=== PATIENT | female | born 1955 | race Caucasian/White ===

== ENCOUNTER 2016-07-09 20:15 | Emergency (ER) | payer MEDICARE, OTHER ==
[~2016-07-09] VITALS: Ht 162.6 cm; Wt 100.0 kg
[~2016-07-09 20:15] MED LIST: ACET-915; ACYC1000; ASPI325T4; CARI350T; CARI350T29 PO; DICL75; DOCU-144; DULO60CA6; ENOX40DI14; FOLI-49; FURO40TA4; HYDR-3612; HYDR200T5; HYDR2SYR; LORA2VIA; MENT71OI; MUPI1OIN5; PANT40TA3; QUET50TA16; RES15 PO; RIFA300C; SERT100T; TEMA30CA6; [UNRECOGNIZED DRUG - CODE]; [UNRECOGNIZED DRUG - CODE] PO; [UNRECOGNIZED DRUG - OTHER]
[2016-07-09 20:20] VITALS: Ht 162.6 cm; Wt 100.0 kg
--- NOTE | 2016-07-09 20:24 | ERA ---
ER Documentation Chief Complaint Date/Time DATE: 07/09/16 TIME: 20:24 Chief Complaint Chronic left leg wound HPI The patient is a 61-year-old female, presenting to the ER because of chronic left leg wound with wound VAC. She saw differences in the color after discharge from the wound VAC, therefore she came to the ER. She denies fever, chills, neck pain, chest pain, dyspnea, abdominal pain, dysuria, diarrhea. He does not smoke or drink. She is following up with her doctor at [facility] for chronic left leg wound ROS All systems reviewed and are negative except as per history of present illness. Medications Home Meds Reported Medications Temazepam* (Temazepam*) 30 Mg Capsule, 30 MG PO HS Y for INSOMNIA, CAP 07/09/16 Pregabalin* (Lyrica*) 75 Mg Capsule, 75 MG PO TID, CAP 07/09/16 Omeprazole* (Omeprazole*) 40 Mg Capsule.dr, 40 MG PO DAILY, #30 CAP 07/09/16 Sertraline Hcl* (Zoloft*) 100 Mg Tablet, 150 MG PO DAILY, #30 TAB 07/09/16 Carisoprodol* (Soma*) 350 Mg Tablet, 350 MG PO TID Y for MUSCLE SPASMS, TAB 07/09/16 Hydroxychloroquine Sulfate* (Plaquenil*) 200 Mg Tab, 200 MG PO BID, TAB 07/09/16 Levothyroxine Sodium* (Synthroid*) 112 Mcg Tablet, 112 MCG PO BEFORE BREAKFAST, #30 TAB 07/09/16 Discontinued Reported Medications Temazepam (Restoril) 15 Mg Cap, PO, CAP 07/29/13 Gabapentin Enacarbil (HORIZANT) 600 Mg Tab.er.24h, PO 07/29/13 Carisoprodol* (Carisoprodol*) 350 Mg Tablet, PO Q8 Y for MUSCLE SPASMS, TAB 07/29/13 [subatax] No Conflict Check 05/23/12 Furosemide* (Furosemide*) 40 Mg Tablet, prn 05/23/12 Temazepam* (Restoril*) 30 Mg Capsule, prn 05/23/12 Menthol/Lanolin/Calamine/Znox (Calmoseptine Ointment) 71 Gm Oint..gm. 10/28/09 Lorazepam (Ativan) 2 Mg/Ml Vial 10/28/09 Hydromorphone Hcl* (Dilaudid* Inj) 2 Mg/Ml Soln 10/28/09 Hydrocodone Bit-Acetaminophen* (Corona*) 1 Tab Tab 10/28/09 Acetaminophen* (Tylenol*) 325 Mg Tab 10/28/09 Vancomycin Hcl (Vancocin 1GM/D5w) 1 Gm/250 Ml Iv.soln. 10/28/09 Sertraline Hcl* (Zoloft*) 100 Mg Tablet 10/28/09 Rifampin* (Rifadin*) 300 Mg Capsule 10/28/09 Quetiapine Fumarate* (Seroquel*) 50 Mg Tablet 10/28/09 Pantoprazole* (Protonix*) 40 Mg Tablet. 10/28/09 Mupirocin Calcium* (Bactroban* Nasal) 1 Gm Oint..gm. 10/28/09 Hydroxychloroquine Sulfate* (Plaquenil*) 200 Mg Tab 10/28/09 Folic Acid* (Folic Acid*) 1 Mg Tablet 10/28/09 Enoxaparin Sodium* (Lovenox*) 40 Mg/0.4 Ml Disp.syrin 10/28/09 Duloxetine Hcl* (Cymbalta*) 60 Mg Capsule. 10/28/09 Docusate Sodium* (Colace*) 100 Mg Capsule 10/28/09 Diclofenac Sodium* (Voltaren*) 75 Mg Tablet. 10/28/09 Carisoprodol* (Soma*) 350 Mg Tablet 10/28/09 Aspirin* (Danyell Aspirin*) 325 Mg Tablet 10/28/09 Acyclovir Sodium (Acyclovir Sodium) 1,000 Mg/Vial Vial 10/28/09 Allergies Allergies: Coded Allergies: Penicillins (Verified Allergy, Severe, 07/09/16) ampicillin (Verified Allergy, Intermediate, 07/09/16) cephalexin (Verified Allergy, Intermediate, 07/09/16) zolpidem (Verified Allergy, Intermediate, 07/09/16) iron (Verified Allergy, Mild, 07/09/16) PMhx/Soc History of Surgery: Yes (Knee Joint Replacement;Bariatric) Anesthesia Reaction: No Hx Neurological Disorder: Yes (Neuropathy) Hx Respiratory Disorders: No Hx Cardiac Disorders: Yes (HTN) Hx Psychiatric Problems: Yes (Anxiety;Depression;Insomnia) Hx Miscellaneous Medical Probl: Yes (RA;Opioid Dependence;Wound MRSA;GERD;Fall; Anemia;Chronic Pain;Muscle Spasms) Hx Alcohol Use: No Hx Substance Use: Yes Hx Tobacco Use: No Physical Exam Vitals Vital Signs Date Time Temp Pulse Resp B/P Pulse Ox O2 Delivery O2 Flow Rate FiO2 07/09/16 22:20 98.2 87 20 132/72 100 Room Air 07/09/16 20:20 97.7 82 20 108/78 100 Physical Exam Const: No acute distress. Head: Atraumatic. Eyes: Normal Conjunctiva. ENT: Normal External Ears, Nose and Mouth. Neck: Full range of motion. No meningismus. Resp: Clear to auscultation bilaterally. Cardio: Regular rate and rhythm, no murmurs. Abd: Soft, non distended, normal bowel sounds, non tender. Skin: No petechiae or rashes. Back: No midline or flank tenderness. Ext: No cyanosis, or edema. Left lower extremity with chronic wound with wound VAC, no erythema, no discharge, no calf tenderness Neur: Awake and alert. No focal deficit Psych: Normal Mood and Affect. Result Diagram: 07/09/16204407/09/162044 Results 24 hrs Laboratory Tests Test 07/09/16 20:45 White Blood Count 11.810^3/ul Red Blood Count 4.3510^6/ul Hemoglobin 10.3g/dl Hematocrit 34.2% Mean Corpuscular Volume 78.6fl Mean Corpuscular Hemoglobin 23.7pg Mean Corpuscular Hemoglobin Concent 30.1g/dl Red Cell Distribution Width 16.2% Platelet Count 30687^3/UL Mean Platelet Volume 9.3fl Neutrophils % 79.4% Lymphocytes % 10.2% Monocytes % 7.8% Eosinophils % 2.0% Basophils % 0.3% Nucleated Red Blood Cells % 0.0/100WBC Neutrophils # 9.310^3/ul Lymphocytes # 1.210^3/ul Monocytes # 0.910^3/ul Eosinophils # 0.210^3/ul Basophils # 0.010^3/ul Nucleated Red Blood Cells # 0.010^3/ul Prothrombin Time 15.5Sec Prothrombin Time Ratio 1.2 INR International Normalized Ratio 1.22 Activated Partial Thromboplast Time 35.3Sec Sodium Level 139mmol/L Potassium Level 4.3mmol/L Chloride Level 100mmol/L Carbon Dioxide Level 28mmol/L Anion Gap 15 Blood Urea Nitrogen 20mg/dl Creatinine 0.90mg/dl Glucose Level 74mg/dl Lactic Acid Level 1.2mmol/L Calcium Level 8.7mg/dl Total Bilirubin 0.1mg/dl Direct Bilirubin 0.00mg/dl Indirect Bilirubin 0.1mg/dl Aspartate Amino Transf (AST/SGOT) 28IU/L Alanine Aminotransferase (ALT/SGPT) 29IU/L Alkaline Phosphatase 88IU/L Troponin I < 0.012ng/ml Total Protein 6.9g/dl Albumin 3.2g/dl Globulin 3.70g/dl Albumin/Globulin Ratio 0.86 Procedures/MDM [place] [id number] Radiology Main Line: [phone] DIAGNOSTIC IMAGING REPORT Patient: ERICA ZAVALA : 1955 Age: 61 Sex: F MR #: [id number] DOS: 07/09/162032 Ordering MD: JULI JOHNSTON MD Location: E/R Room/Bed: PROCEDURE: XR Chest. CLINICAL INDICATION: Possible sepsis. TECHNIQUE: Single AP portable chest COMPARISON: 07/29/2013 Chest x-ray FINDINGS: Cardiomegaly stable compared to prior examination. Mild vascular congestion. The patient is rotated to the left. No pleural effusion or focal consolidation. Atherosclerotic calcification of the aorta. No pneumothorax. The osseous structures and soft tissues are unremarkable. IMPRESSION: 1. No evidence for active cardiopulmonary disease. Mild prominence of the pulmonary vascularity. RPTAT:AAJJ Physician Gabrielle Date Time Electronically viewed and signed by Physician Gabrielle on 07/09/2016 21:05 JESSICA/ CC: JULI JOHNSTON MD EKG: Read by emergency physician Rate/Rhythm: Normal Sinus Rhythm 90 beats/min QRS, ST, T-waves: No ST elevation, no T inversion, low voltage QRS, septal Q waves Impression: Abnormal EKG MEDICAL MAKING DECISION: The patient is a 61-year-old female, presenting with chronic left leg wound. She is stable for outpatient follow-up The differential diagnoses considered include but are not limited to cellulitis , abscess, DVT, osteomyelitis Departure Diagnosis: Primary Impression: Chronic wound of extremity Additional Impression: Anemia Condition: Good Comments I discussed the findings with the patient. I advised the patient to follow-up with the primary physician in about 1-2 days, sooner if needed and return if any concern. JULI JOHNSTON MD July 09, 2016 20:24
--- NOTE | 2016-07-09 21:05 | RADRPT ---
PROCEDURE: XR Chest. CLINICAL INDICATION: Possible sepsis. TECHNIQUE: Single AP portable chest COMPARISON: 07/29/2013 Chest x-ray FINDINGS: Cardiomegaly stable compared to prior examination. Mild vascular congestion. The patient is rotate d to the left. No pleural effusion or focal consolidation. Atherosclerotic calcification of the ao rta. No pneumothorax. The osseous structures and soft tissues are unremarkable. IMPRESSION: 1. No evidence for active cardiopulmonary disease. Mild prominence of the pulmonary vascularity. RPTAT:AAJJ Jono Jones Physician Date Time Electronically viewed and signed by Physician Gabrielle on 07/09/2016 21:05 JESSICA/
[2016-07-09] MEDS ORDERED: LEVO112T2 PO (21:10)
[2016-07-09 21:11] LABS: ADD SCAN DIFF NO
[2016-07-09] MEDS ORDERED: HYDR200T5 PO (21:11)
[2016-07-09] MEDS ORDERED: CARI350T PO (21:11)
[2016-07-09] MEDS ORDERED: SERT100T PO (21:12)
[2016-07-09 21:13] LABS: BASOPHILS % 0.3 % (0.0-2.0); EOSINOPHILS # 0.2 10^3/ul (0.0-0.5); HEMATOCRIT 34.2 % (37.0-47.0); HEMOGLOBIN 10.3 g/dl (12.0-16.0); LYMPHOCYTES # 1.2 10^3/ul (0.8-2.9); LYMPHOCYTES % 10.2 % (15.0-51.0); MEAN CORPUSCULAR HEMOGLOBIN 23.7 pg (29.0-33.0); MEAN CORPUSCULAR HGB CONC 30.1 g/dl (32.0-37.0); MEAN CORPUSCULAR VOLUME 78.6 fl (82.0-101.0); MEAN PLATELET VOLUME 9.3 fl (7.4-10.4); MONOCYTE # 0.9 10^3/ul (0.3-0.9); MONOCYTES % 7.8 % (0.0-11.0); NEUTROPHIL # 9.3 10^3/ul (1.6-7.5); NEUTROPHILS % 79.4 % (39.0-77.0); PLATELET COUNT 344 10^3/UL (140-415); RED BLOOD COUNT 4.35 10^6/ul (4.20-5.40); RED CELL DISTRIBUTION WIDTH 16.2 % (11.5-14.5); WHITE BLOOD COUNT 11.8 10^3/ul (4.8-10.8)
[2016-07-09] MEDS ORDERED: OMEP40CA6 PO (21:13)
[2016-07-09] MEDS ORDERED: LYR75 PO (21:13)
[2016-07-09] MEDS ORDERED: TEMA30CA PO (21:15)
[2016-07-09 21:31] LABS: ALBUMIN 3.2 g/dl (3.3-4.9); CHLORIDE 100 mmol/L (97-110); POTASSIUM 4.3 mmol/L (3.5-5.1); SODIUM 139 mmol/L (135-144)
[2016-07-09 21:32] LABS: INR 1.22; PROTIME 15.5 Sec (12.2-14.2); PT RATIO 1.2
[2016-07-09 21:33] LABS: PARTIAL THROMBOPLASTIN TIME 35.3 Sec (25.0-35.0)
[2016-07-09 21:34] LABS: ALANINE AMINOTRANSFERASE 29 IU/L (13-69); ALBUMIN/GLOBULIN RATIO 0.86; ALKALINE PHOSPHATASE 88 IU/L (42-121); ANION GAP 15 (8-16); ASPARTATE AMINO TRANSFERASE 28 IU/L (15-46); BILIRUBIN,INDIRECT 0.1 mg/dl (0-1.1); BILIRUBIN,TOTAL 0.1 mg/dl (0.2-1.3); BLOOD UREA NITROGEN 20 mg/dl (7-20); CALCIUM 8.7 mg/dl (8.4-10.2); CARBON DIOXIDE 28 mmol/L (21-31); GLUCOSE 74 mg/dl (70-220); TOTAL PROTEIN 6.9 g/dl (6.1-8.1)
[2016-07-09 21:51] LABS: TROPONIN-I < 0.012 ng/ml (0.00-0.12)
[2016-07-09 23:00] VITALS: BP 133/85; PULSE 88; RESP 20; TEMP 97.8
== END 2016-07-09 23:00 | disposition home or self-care (01) ==
LOC: E/R 20:15
DX: S81.802A Unspecified open wound, left lower leg, initial encounter (principal); I10 Essential (primary) hypertension; D64.9 Anemia, unspecified; R07.9 Chest pain, unspecified; X58.XXXA Exposure to other specified factors, initial encounter; Y92.9 Unspecified place or not applicable; Z96.651 Presence of right artificial knee joint; Z79.82 Long term (current) use of aspirin
CPT/HCPCS: 36415; 71010; 80053; 83605; 84484; 85025; 85610; 85730; 87040

== ENCOUNTER 2016-09-15 09:52 | Inpatient (IN) | payer MEDICARE, OTHER ==
[~2016-09-15] VITALS: Ht 170.2 cm; Wt 81.8 kg
[2016-09-15] VITALS (7 sets, daily range): BP systolic 150–172; BP diastolic 63–82; PULSE 75–86; RESP 18–20; Ht 170.2 cm; Wt 81.8 kg
[~2016-09-15 09:52] MED LIST changes: -ACET-915; -ACYC1000; -ASPI325T4; -CARI350T; +CARI350T PO; -CARI350T29 PO; -DICL75; -DOCU-144; -DULO60CA6; -ENOX40DI14; -FOLI-49; -FURO40TA4; -HYDR-3612; -HYDR200T5; +HYDR200T5 PO; -HYDR2SYR; +LEVO112T2 PO; -LORA2VIA; +LYR75 PO; -MENT71OI; -MUPI1OIN5; +OMEP40CA6 PO; -PANT40TA3; -QUET50TA16; -RES15 PO; -RIFA300C; -SERT100T; +SERT100T PO; +TEMA30CA PO; -TEMA30CA6; -[UNRECOGNIZED DRUG - CODE]; -[UNRECOGNIZED DRUG - CODE] PO; -[UNRECOGNIZED DRUG - OTHER]
--- NOTE | 2016-09-15 10:06 | ERA ---
ER Documentation Chief Complaint Date/Time DATE: 09/15/16 TIME: 10:06 Chief Complaint HPI 61y/o female, h/o rheumatoid arthritis 2 weeks s/p left AKA presents to the ED via rescue ambulance for evaluation of loss of consciousness and ALOC. Caregiver reports the patient was unresponsive for 30 minutes. Paramedics found the patient awake but lethargic and confused. No reported seizure activity. Mild headache but no visual changes, focal weakness or numbness. Patient denies chest pain, palpitations or shortness of breath. No abdominal pain, N/V/D/C. No fevers or chills. ROS All systems reviewed and are negative except as per history of present illness. Medications Home Meds Reported Medications Temazepam* (Temazepam*) 30 Mg Capsule, 30 MG PO HS Y for INSOMNIA, CAP 07/09/16 Pregabalin* (Lyrica*) 75 Mg Capsule, 75 MG PO TID, CAP 07/09/16 Omeprazole* (Omeprazole*) 40 Mg Capsule.dr, 40 MG PO DAILY, #30 CAP 07/09/16 Sertraline Hcl* (Zoloft*) 100 Mg Tablet, 150 MG PO DAILY, #30 TAB 07/09/16 Carisoprodol* (Soma*) 350 Mg Tablet, 350 MG PO TID Y for MUSCLE SPASMS, TAB 07/09/16 Hydroxychloroquine Sulfate* (Plaquenil*) 200 Mg Tab, 200 MG PO BID, TAB 07/09/16 Levothyroxine Sodium* (Synthroid*) 112 Mcg Tablet, 112 MCG PO BEFORE BREAKFAST, #30 TAB 07/09/16 Allergies Allergies: Coded Allergies: Penicillins (Verified Allergy, Severe, 07/09/16) ampicillin (Verified Allergy, Intermediate, 07/09/16) cephalexin (Verified Allergy, Intermediate, 07/09/16) zolpidem (Verified Allergy, Intermediate, 07/09/16) iron (Verified Allergy, Mild, 07/09/16) PMhx/Soc Reviewed in chart. As per HPI. History of Surgery: Yes (Knee Joint Replacement;Bariatric) Anesthesia Reaction: No Hx Neurological Disorder: Yes (Neuropathy) Hx Respiratory Disorders: No Hx Cardiac Disorders: Yes (HTN) Hx Psychiatric Problems: Yes (Anxiety;Depression;Insomnia) Hx Miscellaneous Medical Probl: Yes (RA;Opioid Dependence;Wound MRSA;GERD;Fall; Anemia;Chronic Pain;Muscle Spasms) Hx Alcohol Use: No Hx Substance Use: Yes Hx Tobacco Use: No FmHx No stroke or cancer Physical Exam Vitals Vital Signs Date Time Temp Pulse Resp B/P Pulse Ox O2 Delivery O2 Flow Rate FiO2 09/15/16 11:10 80 15 173/91 98 Room Air 09/15/16 10:29 99.0 90 14 196/87 95 Physical Exam Const: Lethargic. Responsive. Head: Atraumatic Eyes: JERALD, EOMI. Normal Conjunctiva ENT: Normal External Ears, Nose and Mouth. No intraoral injury. Neck: Full range of motion. Carotids 2+ without bruits. No JVD. No meningismus. Resp: BS equal and clear to auscultation bilaterally Cardio: Regular rate and rhythm, no murmurs Abd: Soft, obese, non tender, non distended. Normal bowel sounds. No masses. Skin: No petechiae or rashes Back: No midline or flank tenderness Ext: No cyanosis, or edema. s/p left AKA. Wound healing well. No erythema induration or drainage Neur: Awake and responsive. CN's II - XII grossly intact. No pronator drift. Motor and sensory equal bilaterally. No focal deficit observed. Psych: Normal Mood and Affect Result Diagram: 09/15/16 1020 09/15/16 1020 Results 24 hrs Laboratory Tests Test 09/15/16 10:20 09/15/16 11:05 White Blood Count 8.510^3/ul Red Blood Count 5.1710^6/ul Hemoglobin 12.3g/dl Hematocrit 41.1% Mean Corpuscular Volume 79.5fl Mean Corpuscular Hemoglobin 23.8pg Mean Corpuscular Hemoglobin Concent 29.9g/dl Red Cell Distribution Width 18.9% Platelet Count 18262^3/UL Mean Platelet Volume 10.0fl Neutrophils % 77.9% Lymphocytes % 13.7% Monocytes % 6.5% Eosinophils % 0.7% Basophils % 0.4% Nucleated Red Blood Cells % 0.0/100WBC Neutrophils # 6.610^3/ul Lymphocytes # 1.210^3/ul Monocytes # 0.610^3/ul Eosinophils # 0.110^3/ul Basophils # 0.010^3/ul Nucleated Red Blood Cells # 0.010^3/ul Sodium Level 144mmol/L Potassium Level 4.6mmol/L Chloride Level 103mmol/L Carbon Dioxide Level 21mmol/L Anion Gap 25 Blood Urea Nitrogen 19mg/dl Creatinine 0.67mg/dl Glucose Level 161mg/dl Calcium Level 9.7mg/dl Total Bilirubin 0.3mg/dl Direct Bilirubin 0.00mg/dl Indirect Bilirubin 0.3mg/dl Aspartate Amino Transf (AST/SGOT) 57IU/L Alanine Aminotransferase (ALT/SGPT) 47IU/L Alkaline Phosphatase 121IU/L Total Protein 8.4g/dl Albumin 4.5g/dl Globulin 3.90g/dl Albumin/Globulin Ratio 1.15 Free Thyroxine 1.33ng/dl Ethyl Alcohol Level < 10.0mg/dl Urine Color YELLOW Urine Clarity SLIGHTLY CLOUDY Urine pH 6.0 Urine Specific [place] 1.020 Urine Ketones NEGATIVEmg/dL Urine Nitrite POSITIVEmg/dL Urine Bilirubin NEGATIVEmg/dL Urine Urobilinogen 2+mg/dL Urine Leukocyte Esterase 2+Compa/ul Urine Microscopic RBC 3/HPF Urine Microscopic WBC 19/HPF Urine Bacteria MANY/HPF Urine Hemoglobin NEGATIVEmg/dL Urine Glucose NEGATIVEmg/dL Urine Total Protein 2+mg/dl Urine Opiates Screen Negative Urine Barbiturates Negative Urine Amphetamines Screen Negative Urine Benzodiazepines Screen Negative Urine Cocaine Screen Negative Urine Cannabinoids Negative Current Medications Medications (Trade) Dose Ordered Sig/Vincent Route PRN Reason Start Time Stop Time Status Last Admin Dose Admin Sodium Chloride 500 ml @ 500 mls/hr Q1H STAT IV 09/15/16 11:01 09/15/16 12:00 DC 09/15/16 11:57 Levofloxacin/ Dextrose (Levaquin 500mg/ D5W 100 ml (Pmx)) 100 ml @ 100 mls/hr ONCE STAT IVPB 09/15/16 12:08 09/15/16 13:07 DC 09/15/16 12:34 EKG: TIME: 10:19. Sinus rhythm. Ventricular rate 93. Septal Q waves in leads V1 and V2. T-wave inversions in leads II, III, aVF, V3 through V6. No acute ST elevation. No ectopy. EP Interpretation: Abnormal EKG. IMAGING: Chest Radiograph. CLINICAL INDICATION: Altered mental status TECHNIQUE: Single frontal chest radiograph. COMPARISON: Chest radiograph 07/29/2013 FINDINGS: Heart size is within normal limits. Atherosclerotic calcifications are present. No infiltrate or effusion is seen. The bones are intact. IMPRESSION: 1. No evidence of acute cardiopulmonary disease. 2. Atherosclerotic vascular disease. RPTAT: KK .Hemant Tirado MD, MD Date Time Electronically viewed and signed by .Hemant Tirado MD, MD on 2016 10:41 .B/ CT brain without contrast CLINICAL INDICATION: Altered level of consciousness TECHNIQUE: CT of the brain without contrast performed on a multidetector CT scanner, with multiplanar reformats. One or more of the following dose reduction techniques were used: Automated exposure control, adjustment in mA and / or kV according to patient size, use of iterative reconstructive technique. CTDIvol = 41 mGy; DLP = 720 mGy-cm. COMPARISON: 07/29/2013 FINDINGS: No acute intracranial hemorrhage is identified. No extra-axial fluid collection is seen. There is no mass effect. No midline shift is identified. The ventricles and sulci are mildly enlarged compatible with volume loss. There are minimal areas of hypodensity in the periventricular - deep white matter which are nonspecific but suggestive of chronic small vessel ischemic changes. Clemente-white differentiation is preserved. Partly empty sella noted. Atherosclerotic calcifications of the intracranial internal carotid arteries are noted. Calvarium and skull base are intact. Mastoid air cells and imaged paranasal sinuses grossly clear. IMPRESSION: 1. No evidence of acute intracranial pathology. 2. Mild volume loss, with minimal chronic small vessel ischemic changes. RPTAT: VV .Romel Yen MD, Date Time Electronically viewed and signed by .Romel Yen MD, MD on 09/15/2016 11:26 .O/ Procedures/MDM DOCUMENTS REVIEWED: ED nurse, prior records MEDICAL DECISION MAKINy/o female, h/o rheumatoid arthritis 2 weeks s/p left AKA presents to the ED via rescue ambulance for evaluation of loss of consciousness and ALOC. No focal neurologic deficit or signs of CVA/TIA. No evidence of seizure. No CT evidence of acute ischemia, mass, hemorrhage or hydrocephalus. No cardiac dysrhythmia. Doubt pulmonary embolism. UTI but no SIRS or sepsis. Admit to telemetry for further evaluation and management. Counseled patient regarding diagnosis, diagnostic results and plan for admission. CALLS/CONSULTS: Time 12:00, Dr. Goetz, Recommends telemetry admission. PATIENT CARE TRANSITIONED: Time: 12:05, Dr. Goetz. Departure Diagnosis: Primary Impression: Syncope Qualified Code: R55 - Syncope, unspecified syncope type Additional Impressions: Altered level of consciousness Rheumatoid arthritis Qualified Code: M06.9 - Rheumatoid arthritis, involving unspecified site, unspecified rheumatoid factor presence S/P AKA (above knee amputation) Qualified Code: Z89.612 - Status post above knee amputation of left lower extremity Condition: Serious STEVEN MENDOZA MD Sep 15, 2016 10:06
[2016-09-15 10:29] LABS: BASOPHILS % 0.4 % (0.0-2.0); EOSINOPHILS # 0.1 10^3/ul (0.0-0.5); EOSINOPHILS % 0.7 % (0.0-7.0); HEMATOCRIT 41.1 % (37.0-47.0); HEMOGLOBIN 12.3 g/dl (12.0-16.0); LYMPHOCYTES # 1.2 10^3/ul (0.8-2.9); LYMPHOCYTES % 13.7 % (15.0-51.0); MEAN CORPUSCULAR HEMOGLOBIN 23.8 pg (29.0-33.0); MEAN CORPUSCULAR HGB CONC 29.9 g/dl (32.0-37.0); MEAN CORPUSCULAR VOLUME 79.5 fl (82.0-101.0); MONOCYTE # 0.6 10^3/ul (0.3-0.9); MONOCYTES % 6.5 % (0.0-11.0); NEUTROPHIL # 6.6 10^3/ul (1.6-7.5); NEUTROPHILS % 77.9 % (39.0-77.0); PLATELET COUNT 426 10^3/UL (140-415); RED BLOOD COUNT 5.17 10^6/ul (4.20-5.40); RED CELL DISTRIBUTION WIDTH 18.9 % (11.5-14.5); WHITE BLOOD COUNT 8.5 10^3/ul (4.8-10.8)
--- NOTE | 2016-09-15 10:41 | RADRPT ---
PROCEDURE: Chest Radiograph. CLINICAL INDICATION: Altered mental status TECHNIQUE: Single frontal chest radiograph. COMPARISON: Chest radiograph 07/29/2013 FINDINGS: Heart size is within normal limits. Atherosclerotic calcifications are present. No infiltrate or effusion is seen. The bones are intact. IMPRESSION: 1. No evidence of acute cardiopulmonary disease. 2. Atherosclerotic vascular disease. RPTAT: KK .Hemant Tirado MD, MD Date Time Electronically viewed and signed by .Hemant Tirado MD, on 09/15/2016 10:41 .B/
[2016-09-15 10:59] LABS: ALANINE AMINOTRANSFERASE 47 IU/L (13-69); ALBUMIN 4.5 g/dl (3.3-4.9); ALBUMIN/GLOBULIN RATIO 1.15; ALKALINE PHOSPHATASE 121 IU/L (42-121); ANION GAP 25 (8-16); ASPARTATE AMINO TRANSFERASE 57 IU/L (15-46); BILIRUBIN,INDIRECT 0.3 mg/dl (0-1.1); BILIRUBIN,TOTAL 0.3 mg/dl (0.2-1.3); BLOOD UREA NITROGEN 19 mg/dl (7-20); CALCIUM 9.7 mg/dl (8.4-10.2); CARBON DIOXIDE 21 mmol/L (21-31); CHLORIDE 103 mmol/L (97-110); CREATININE 0.67 mg/dl (0.44-1.00); GLUCOSE 161 mg/dl (70-220); POTASSIUM 4.6 mmol/L (3.5-5.1); SODIUM 144 mmol/L (135-144); TOTAL PROTEIN 8.4 g/dl (6.1-8.1)
[2016-09-15] MEDS ORDERED: SOD CHLORIDE 0.9% 500 ML IV STA (11:01)
[2016-09-15 11:03] LABS: ETHANOL < 10.0 mg/dl
--- NOTE | 2016-09-15 11:26 | RADRPT ---
PROCEDURE: CT brain without contrast CLINICAL INDICATION: Altered level of consciousness TECHNIQUE: CT of the brain without contrast performed on a multidetector CT scanner, with multiplan ar reformats. One or more of the following dose reduction techniques were used: Automated exposure control, adjustment in mA and / or kV according to patient size, use of iterative reconstructive vidal hnique. CTDIvol = 41 mGy; DLP = 720 mGy-cm. COMPARISON: 07/29/2013 FINDINGS: No acute intracranial hemorrhage is identified. No extra-axial fluid collection is seen. There is no mass effect. No midline shift is identified. The ventricles and sulci are mildly enlarged compatible with volume loss. There are minimal areas of hypodensity in the periventricular - deep white matter which are nonspeci fic but suggestive of chronic small vessel ischemic changes. Clemente-white differentiation is preserve d. Partly empty sella noted. Atherosclerotic calcifications of the intracranial internal carotid arteries are noted. Calvarium and skull base are intact. Mastoid air cells and imaged paranasal sinuses grossly clear. IMPRESSION: 1. No evidence of acute intracranial pathology. 2. Mild volume loss, with minimal chronic small vessel ischemic changes. RPTAT: VV .Romel Yen MD, Date Time Electronically viewed and signed by .Romel Yen MD, on 09/15/2016 11:26 .O/
[2016-09-15 11:39] LABS: ADD UMIC YES; UR ASCORBIC ACID NEGATIVE (NEGATIVE); UR BACTERIA MANY /HPF (NONE SEEN); UR BILIRUBIN (Dip) NEGATIVE (NEGATIVE); UR BLOOD (Dip) NEGATIVE (NEGATIVE); UR CLARITY SLIGHTLY CLOUDY (CLEAR); UR COLOR YELLOW (YELLOW); UR GLUCOSE (Dip) NEGATIVE (NEGATIVE); UR KETONES (Dip) NEGATIVE (NEGATIVE); UR LEUKOCYTE ESTERASE (Dip) 2+ Leu/ul (NEGATIVE); UR NITRITE (Dip) POSITIVE (NEGATIVE); UR RBC 3 /HPF (0-5); UR TOTAL PROTEIN (Dip) 2+ mg/dl (NEGATIVE); UR UROBILINOGEN (Dip) 2+ mg/dL (NEGATIVE)
[2016-09-15 11:56] LABS: BENZODIAZEPINES Negative (NEGATIVE)
[2016-09-15 12:00] LABS: BARBITURATES Negative (NEGATIVE); CANNABINOIDS Negative (NEGATIVE); COCAINE Negative (NEGATIVE); OPIATES Negative (NEGATIVE)
[2016-09-15] MEDS ORDERED: LEVOFLOXACIN 500MG/D5W (PMX) 100 ML IVPB STA (12:08)
[2016-09-15] MEDS ORDERED: ACETAMINOPHEN 325 MG TAB PO PRN (12:30)
[2016-09-15] MEDS ORDERED: ONDANSETRON 4 MG INJ IV PRN ×2 (12:30→13:00)
[2016-09-15] MEDS ORDERED: NA PHOSPHATE/BIPHOS 133 ML ENEMA PR PRN (13:00)
[2016-09-15] MEDS ORDERED: DOCUSATE SODIUM 100 MG CAP PO PRN (13:00)
[2016-09-15] MEDS ORDERED: ALBUTEROL/IPRATROPIUM (NEB) 3 ML AMP HHN PRN (13:00)
[2016-09-15] MEDS ORDERED: NITROGLYCERIN (SL) 0.4 MG TAB SL PRN (13:00)
[2016-09-15] MEDS ORDERED: morphine 4 MG/ML VIAL IV PRN (13:00)
[2016-09-15] MEDS ORDERED: NACL 0.9% 3 ML SYG IV SCH (13:00)
[2016-09-15] MEDS ORDERED: MAGNESIUM HYDROXIDE 30ML CUP PO PRN (13:00)
[2016-09-15] MEDS ORDERED: hydrALAzine 20 MG INJ IV PRN (13:00)
[2016-09-15] MEDS ORDERED: HYDROCODONE/APAP (5/325) TAB PO PRN (13:00)
[2016-09-15] MEDS: SOD CHLORIDE 0.9% 1,000 ML IV SCH ×2 (15:39→22:55)
[2016-09-15] MEDS: AZTREONAM 1 GM/NS (PMX) 50 ML IVPB SCH ×2 (15:47→21:00)
--- NOTE | 2016-09-15 16:17 | HP ---
Date/Time of Note Date/Time of Note DATE: 09/15/16 TIME: 16:11 Assessment/Plan VTE Prophylaxis VTE Prophylaxis Intervention: SCD's Lines/Catheters IV Catheter Type (from Nrsg): Peripheral IV Assessment/Plan Chief Complaint/Hosp Course Assessment and plan: 61-year-old female found down at home, with recent left AKA , history of rheumatoid arthritis and lupus, and [place] abuse. Differential diagnosis includes polypharmacy, less likely would include stroke as head CT was negative. Less likely is also seizure, or [place]. 1. Syncope: Again head CT negative. -We will check carotid Dopplers, echocardiogram. Consider pain management consult given possibility of polypharmacy. - Obviously we are going to hold her home pain medicines for now -Consider low-dose methadone to start. 2. History of rheumatoid arthritis: Again pain management doctor be consult 3. Lupus: No present issues continue to monitor for now 4. Recent AKA: We will get PT consult, social work consult as well for possible placement 5. GI prophylaxis: PPI Problems: HPI/ROS Admit Date/Time Admit Date/Time Sep 15, 2016 at 12:29 ROS 61-year-old female past medical history of [place] abuse, recent AKA left, rheumatoid arthritis, MRSA infection in the knees and hip, lupus, who presents after being found down at home. Apparently the patient had left AKA performed at [facility] least 2 weeks ago. She was sent to [facility] afterwards. Before that she had been on epidural pump at the hospital, and then switched over to methadone. In any event she rehabbed and was in tears and was sent home about a week or so ago. She says 2 days ago she developed severe headache after talking to some neighbors who "caught her by surprise ". She did fine yesterday but today when her caregiver was trying to turn her patient developed some sudden left arm numbness and states she passed out. Before this happened she denied any palpitations, tongue biting, but did have positive dizziness. When she woke up which she thinks is minutes later EMS was started there. Denied any tongue biting, no leakage of any urine or stool. No prior history of any stroke or heart attack. When she came into the ER today head CT was performed which was negative for acute findings. PMH/Family/Social Past Surgical History Past Surgical Hx: other (L1-5 back surgery, femur fracture surgery, recent left AKA, tonsil surgery ) Family History Significant Family History: heart disease (Father), lung disease (Cancer, mother) Social History Alcohol Use: none Smoking Status: Never smoker Drug Use: other (Former [place] abuse) Exam/Review of Systems Vital Signs Vitals Vital Signs Date Time Temp Pulse Resp B/P Pulse Ox O2 Delivery O2 Flow Rate FiO2 09/15/16 16:07 85 09/15/16 13:37 17 153/84 100 Room Air 09/15/16 10:29 99.0 Exam Exam General: Lying in bed, slightly lethargic, loses train of thought occasionally, alert when reoriented HEENT: Pupils equal round reactive to light extraocular muscles are intact Neck: Supple Respiratory: Slightly distant breath sounds bilaterally, no wheezes Cardiovascular: S1-S2 heard, no rubs or gallops GI: Nontender, nondistended, soft, no rebound or guarding Muscular skeletal: Left AKA present. No lower extremity edema right lower extremity Neuro: No signs of any focal deficits Labs Result Diagram: 09/15/16 1020 09/15/16 1020 Medications Medications Current Medications Ondansetron HCl (Zofran Inj) 4 mg Q6H PRN IV NAUSEA AND/OR VOMITING; Start 09/15 at 13:00 Acetaminophen (Tylenol Tab) 650 mg Q6H PRN PO PAIN LEVEL 1-3 OR FEVER; Start at 13:00 Acetaminophen/ Hydrocodone Bitart ([place] (5/325)) 1 tab Q6H PRN PO MODERATE PAIN LEVEL 4-6; Start 09/15/16 at 13:00 Morphine Sulfate (morphine) 2 mg Q4H PRN IV SEVERE PAIN LEVEL 7-10; Start at 13:00 Docusate Sodium (Colace) 100 mg Q12H PRN PO CONSTIPATION; Start 09/15/16 at 13: 00 Magnesium Hydroxide (Milk Of Mag) 30 ml DAILY PRN PO CONSTIPATION; Start at 13:00 Sodium Biphosphate/ Sodium Phosphate (Fleet Enema) 133 ml DAILY PRN [place] CONSTIPATION; Start 09/15/16 at 13:00 Lorazepam 0.5 mg 0.5 mg Q6H PRN IV ANXIETY; Start 09/15/16 at 13:00 Sodium Chloride (NS) 1,000 ml @ 100 mls/hr Q10H IV Last administered on 15:39; Admin Dose 100 MLS/HR; Start 09/15/16 at 12:55 Hydralazine HCl (Apresoline) 10 mg Q6H PRN IV ELEVATED BLOOD PRESSURE; Start at 13:00 Nitroglycerin (Nitroglycerin (Sl Tab) 0.4 Mg) 1 tab Q5M PRN SL ANGINA; Start at 13:00 Hydroxychloroquine Sulfate (Plaquenil) 200 mg BID PO ; Start 09/15/16 at 21:00 Pantoprazole 40 mg 40 mg DAILY PO ; Start 09/16/16 at 09:00 Aztreonam (Azactam 1gm/NS (Pmx)) 50 ml @ 100 mls/hr Q12 IVPB Last administered on 09/15/16 15:47; Admin Dose 100 MLS/HR; Start 09/15/16 at 13:00 RAYA JOAQIUN Sep 15, 2016 16:17
[2016-09-15] MEDS ORDERED: PIPER-TAZO 3.375 GM IV (PMX) 100 ML IVPB SCH (18:00)
--- NOTE | 2016-09-15 18:03 | RADRPT ---
PROCEDURE: US carotid arteries. CLINICAL INDICATION: Dizziness. Syncope. TECHNIQUE: Multiple sonographic images of the carotid arteries and vertebral arteries were obtaine d utilizing olvera scale, duplex, and color-flow imaging. The images were reviewed on a PACS workstati on. COMPARISON: No prior studies are available for comparison. FINDINGS: Evaluation of the right carotid bifurcation region reveals mild atherosclerotic disease. Evaluation of the left carotid bifurcation region reveals mild atherosclerotic disease. There is antegrade flow within the vertebral arteries bilaterally. RIGHT CAROTID MEASUREMENTS: Common Carotid [id number] (cm/sec) Internal Carotid Artery 71 (cm/sec) External Carotid Artery 65 (cm/sec) Vertebral Artery 60 (cm/sec) Internal Carotid/Common Carotid0.8 LEFT CAROTID MEASUREMENTS: Common Carotid [id number] (cm/sec) Internal Carotid Artery 80 (cm/sec) External Carotid Artery 54 (cm/sec) Vertebral Artery 65 (cm/sec) Internal Carotid/Common Carotid1.3 Validated velocity measurements with angiographic measurements. Velocity criteria are extrapolated f rom diameter data as defined by the Society of Radiologists in Ultrasound Consensus Conference. Radi ology 2003; 229;340-346. This study does indirectly reference the measurement of the distal ICA shayy meter as the denominator for stenosis measurement. IMPRESSION: 1. Less than 50% stenosis bilaterally in the internal carotid arteries. 2. Normal antegrade flow in the vertebral arteries bilaterally. RPTAT: QQ SRU Consensus Conference Criteria for the Diagnosis of Carotid Artery Stenosis* Degree of Stenosis, % ICA PSV, cm/sec Plaque Estimate, % ICA/CCA PSV Ratio Normal <125 None <2.0 <50 <125 <50 <2.0 50 69 125-230 >50 2.0-4.0 >70 but less than near occlusion >230 >50 <4.0 Near occlusion High, low, or undetectable Visible Variable Total occlusion Undetectable Visible, no detectable lumen Not applicable *Cartoid artery stenosis: olvera-scale and Doppler US diagnosis. Society of Radiologists in Ultrasound Consensus Conference. Radiology 2003; 229: 340-346 .Luis Angel Elizalde MD, Date Time Electronically viewed and signed by .Luis Angel Elizalde MD, on 09/15/2016 18:02 .R/
[2016-09-15] MEDS: METHADONE 5 MG TAB PO SCH (20:53)
[2016-09-15] MEDS: HYDROXYCHLOROQUINE 200 MG TAB PO SCH (21:22)
[2016-09-16] VITALS (10 sets, daily range): BP systolic 124–135; BP diastolic 60–70; PULSE 59–70; RESP 18–20
[2016-09-16] MEDS: ACETAMINOPHEN 325 MG TAB PO PRN ×2 (01:03→11:58)
[2016-09-16] MEDS: LEVOTHYROXINE 112 MCG TAB PO SCH (06:23)
[2016-09-16] MEDS: HYDROXYCHLOROQUINE 200 MG TAB PO SCH ×2 (08:45→20:55)
[2016-09-16] MEDS: PANTOPRAZOLE (EC) 40 MG TAB PO SCH (08:45)
[2016-09-16] MEDS: METHADONE 5 MG TAB PO SCH ×2 (08:45→20:55)
[2016-09-16] MEDS: SOD CHLORIDE 0.9% 1,000 ML IV SCH ×2 (08:55→20:55)
[2016-09-16] MEDS ORDERED: LIDOCAINE 1% (MPF) 5 ML VIAL SC ONE (09:30)
--- NOTE | 2016-09-16 14:15 | PN ---
Date/Time of Note Date/Time of Note DATE: 09/16/16 TIME: 14:11 Assessment/Plan VTE Prophylaxis VTE Prophylaxis Intervention: SCD's Lines/Catheters IV Catheter Type (from Nrsg): Peripheral IV Urinary Cath still in place: No Assessment/Plan Chief Complaint/Hosp Course Assessment and plan: 61-year-old female found down at home, with recent left AKA , history of rheumatoid arthritis and lupus, and [place] abuse. Differential diagnosis includes polypharmacy, less likely would include stroke as head CT was negative. Less likely is also seizure, or [place]. 1. Syncope: Again head CT negative. -Follow-up echocardiogram. Follow-up pain management consult recommendation given possibility of polypharmacy. - Obviously we are going to hold her home pain medicines for now -Upon discussion with pain management team, continue low-dose methadone twice daily 2. History of rheumatoid arthritis monitor, follow-up pain management doctor recommended 3. Lupus: No present issues continue to monitor for now 4. Recent AKA: Follow-up PT consult, social work consult as well for possible placement 5. GI prophylaxis: PPI Problems: Subjective 24 Hr Interval Summary Free Text/Dictation Per nursing staff, patient more alert this morning. Evaluated by pain management team. Carotid Doppler was performed. Speech team evaluated patient. Exam/Review of Systems Vital Signs Vitals Vital Signs Date Time Temp Pulse Resp B/P Pulse Ox O2 Delivery O2 Flow Rate FiO2 09/16/16 12:08 98.2 64 20 124/70 100 09/15/16 13:37 Room Air Intake and Output 09/15/16 09/15/16 09/16/16 14:59 22:59 06:59 Intake Total 600 ml 50 ml Balance 600 ml 50 ml Exam Physical exam: Unable to be performed today because patient is off the floor presently getting PICC line Results Result Diagram: 09/15/16 1020 09/15/16 1020 Medications Medications Current Medications Ondansetron HCl (Zofran Inj) 4 mg Q6H PRN IV NAUSEA AND/OR VOMITING; Start 09/15 at 13:00 Acetaminophen (Tylenol Tab) 650 mg Q6H PRN PO PAIN LEVEL 1-3 OR FEVER Last administered on 09/16/16t 11:58; Admin Dose 650 MG; Start 09/15/16 at 13:00 Docusate Sodium (Colace) 100 mg Q12H PRN PO CONSTIPATION; Start 09/15/16 at 13: 00 Magnesium Hydroxide (Milk Of Mag) 30 ml DAILY PRN PO CONSTIPATION; Start at 13:00 Sodium Biphosphate/ Sodium Phosphate (Fleet Enema) 133 ml DAILY PRN [place] CONSTIPATION; Start 09/15/16 at 13:00 Lorazepam 0.5 mg 0.5 mg Q6H PRN IV ANXIETY; Start 09/15/16 at 13:00 Sodium Chloride (NS) 1,000 ml @ 100 mls/hr Q10H IV Last administered on 15:39; Admin Dose 100 MLS/HR; Start 09/15/16 at 12:55 Hydralazine HCl (Apresoline) 10 mg Q6H PRN IV ELEVATED BLOOD PRESSURE; Start at 13:00 Nitroglycerin (Nitroglycerin (Sl Tab) 0.4 Mg) 1 tab Q5M PRN SL ANGINA; Start at 13:00 Hydroxychloroquine Sulfate (Plaquenil) 200 mg BID PO Last administered on 08:45; Admin Dose 200 MG; Start 09/15/16 at 21:00 Pantoprazole (Protonix Tab) 40 mg DAILY PO Last administered on 09/16/16 08:45 ; Admin Dose 40 MG; Start 09/16/16 at 09:00 Methadone HCl 5 mg 5 mg BID PO Last administered on 09/16/16 08:45; Admin Dose 5 MG; Start 09/15/16 at 21:00 Aztreonam (Azactam 1gm/NS (Pmx)) 50 ml @ 100 mls/hr DAILY IVPB ; Start 09/17/16 at 09:00 RAYA JOAQUIN Sep 16, 2016 14:15
--- NOTE | 2016-09-16 16:54 | RADRPT ---
PROCEDURE: Ultrasound guidance for placement of needle in left upper extremity vein. CLINICAL INDICATION: Venous access. TECHNIQUE: Limited sonography of the left upper extremity was performed. Ultrasound images were recorded and s tored in the patient's medical record. COMPARISON: None. FINDINGS: The ultrasound images demonstrate a patent left upper extremity vein. The PICC line was inserted by the PICC line nurse. IMPRESSION: 1. Ultrasound guidance for a needle placement in a left upper extremity vein. 2. The left upper extremity vein is patent. RPTAT: QQ .Luis Angel Elizalde MD, MD Date Time Electronically viewed and signed by .Luis Angel Elizalde MD, MD on 09/16/2016 16:54 .R/
--- NOTE | 2016-09-16 16:55 | RADRPT ---
PROCEDURE: XR Chest. CLINICAL INDICATION: Check PICC line position. TECHNIQUE: Single frontal view. COMPARISON: No prior study is available for comparison. FINDINGS: There is a left arm PICC line with the tip in the cavoatrial junction region. The lungs are clear. The heart size is normal. There is calcification in the aorta consistent with atherosclerosis. There is no pleural effusion. There is no pneumothorax. IMPRESSION: 1. Left arm PICC line tip in satisfactory position. 2. Atherosclerosis. 3. Otherwise normal chest radiograph. RPTAT: QQ .Luis Angel Elizalde MD, MD Date Time Electronically viewed and signed by .Luis Angel Elizalde MD, MD on 09/16/2016 16:55 .R/
[2016-09-16] MEDS ORDERED: SOD CHLORIDE 0.9% 100 ML ONE (17:05)
[2016-09-16] MEDS: traMADol 50 MG TAB PO PRN (17:23)
[2016-09-16 19:52] LABS: CHOL/HDL RATIO 3.9 RATIO
--- NOTE | 2016-09-16 21:41 | RADRPT ---
Echocardiogram Report Patient Name: ERICA ZAVALA Gender: Female Date: 1955 Study Date: 16-Sep-2016 Surveying Or Spatial Science Technician: Bri [facility] Location: 5565 Ref. Physician: RAYA JOAQUIN Quality: Adequate Procedures: Transthoracic echocardiogram with complete 2D, M-Mode, and doppler examination. Indications: Syncope. 2D/M Mode Doppler Measurement Value Normal Ranges Measurement Value Normal Ranges LVIDd 2D 4.3 3.5 - 5.6 cm AV Peak Ramesh 1.6 m/sec LVIDs 2D 2.9 2.1 - 4.1 cm AV Peak PG 10.0 mmHg FS 2D 33.2 % LVOT Peak Ramesh 1.2 m/sec LVPWd 2D 1.3 0.6 - 1.1 cm LVOT Peak PG 6.0 mmHg IVSd 2D 1.3 0.6 - 1.1 cm MV E Peak Ramesh 0.9 m/sec IVS/LVPW 2D 1.0 MV A Peak Ramesh 0.8 m/sec AoR Diam 2D 2.8 2.0 - 3.7 cm MV E/A 1.1 LA/Ao 2D 1 0 - 1 MV Decel Time 254 msec EDV 2D 80.1 cm3 MV E/A 1.1 ESV 2D 23.9 cm3 TR Peak Ramesh 2.5 m/sec LA Dimen 2D 3.4 2.3 - 4.0 cm TR Peak PG 26.0 mmHg RVSP 29.0 mmHg Findings Left Ventricle: Normal left ventricular systolic function. Normal left ventricular cavity size. Mild concentric left ventricular hypertrophy. Ejection fraction is visually estimated at 60 %. Abnormal Diastolic Function. Right Ventricle: Normal right ventricular size. Normal right ventricular systolic function. Left Atrium: The left atrium is normal in size. Right Atrium: The right atrium is normal in size. Mitral Valve: Mitral valve leaflets appear mildly thickened. Mild mitral annular calcification. Trace mitral regurgitation. Aortic Valve: Normal appearance of the aortic valve. No significant aortic stenosis or insufficiency. Tricuspid Valve: Normal appearance of the tricuspid valve. Estimated peak PA systolic pressure 29 mmHg. There is mild tricuspid regurgitation. Pulmonic Valve: Pulmonic valve not well visualized. There is trace pulmonic regurgitation. Pericardium: Normal pericardium with no significant pericardial effusion. Aorta: Normal aortic root. IVC: Normal size and normal respiratory collapse consistent with normal right atrial pressure. Conclusions 1.The left ventricle is normal in size and systolic function. 2.Estimated left ventricular ejection fraction of 60%. 3.Mild concentric left ventricular hypertrophy. Electronically Signed By: Abimael Saucedo 16-Sep-2016 21:40:49 -0700 Patient Name: ERICA ZAVALA Study Date: 16-Sep-2016 [id number]
[2016-09-17] VITALS (12 sets, daily range): BP systolic 113–128; BP diastolic 54–62; PULSE 50–85; RESP 19–20
[2016-09-17] MEDS: traMADol 50 MG TAB PO PRN ×2 (02:36→09:57)
[2016-09-17] MEDS: SOD CHLORIDE 0.9% 1,000 ML IV SCH ×3 (02:40→14:01)
[2016-09-17] MEDS: LEVOTHYROXINE 112 MCG TAB PO SCH (06:51)
[2016-09-17 08:38] LABS: BASOPHILS % 0.6 % (0.0-2.0); EOSINOPHILS # 0.3 10^3/ul (0.0-0.5); EOSINOPHILS % 4.4 % (0.0-7.0); HEMATOCRIT 31.5 % (37.0-47.0); HEMOGLOBIN 9.3 g/dl (12.0-16.0); LYMPHOCYTES % 14.3 % (15.0-51.0); MEAN CORPUSCULAR HEMOGLOBIN 23.8 pg (29.0-33.0); MEAN CORPUSCULAR HGB CONC 29.5 g/dl (32.0-37.0); MEAN CORPUSCULAR VOLUME 80.8 fl (82.0-101.0); MEAN PLATELET VOLUME 10.3 fl (7.4-10.4); MONOCYTE # 0.9 10^3/ul (0.3-0.9); MONOCYTES % 13.3 % (0.0-11.0); NEUTROPHIL # 4.7 10^3/ul (1.6-7.5); PLATELET COUNT 280 10^3/UL (140-415); RED CELL DISTRIBUTION WIDTH 18.8 % (11.5-14.5)
[2016-09-17] MEDS ORDERED: AZTREONAM 1 GM/NS (PMX) 50 ML IVPB SCH (09:00)
[2016-09-17 09:05] LABS: CALCIUM 8.4 mg/dl (8.4-10.2); CREATININE 0.65 mg/dl (0.44-1.00); POTASSIUM 3.7 mmol/L (3.5-5.1)
[2016-09-17] MEDS: PANTOPRAZOLE (EC) 40 MG TAB PO SCH (09:22)
[2016-09-17] MEDS: HYDROXYCHLOROQUINE 200 MG TAB PO SCH ×2 (09:22→20:31)
[2016-09-17] MEDS: METHADONE 5 MG TAB PO SCH ×2 (09:22→20:31)
[2016-09-17] MEDS: LORAZEPAM 2 MG INJ IV PRN (09:30)
--- NOTE | 2016-09-17 12:25 | CONS ---
Date/Time of Note Date/Time of Note DATE: 09/17/16 TIME: 12:18 Assessment/Plan Assessment/Plan Additional Assessment/Plan Because she has been on supra tracts but an unknown amount I agree continue with methadone 5 mg twice daily however I would not write for methadone at time of discharge. I believe she is confused with her medication is high risk of taking a unknown high amount of opioids and having serious neurological side effects. Consider patient to be discharged to long-term unit, consider safe for discharge if she is discharged to SNF. Consultation Date/Type/Reason Admit Date/Time Sep 15, 2016 at 12:29 Type of Consultation: Pain management Hx of Present Illness 61-year-old female admitted patient was found altered at home recent history of discharge another hospital after recent [id number] amputation. Patient is somewhat unclear a poor historian as to her opioid use however what information I can obtain for her that she uses short acting opioid and subatrex given to her by her primary care pain management doctor. She does not recall if she took these medications but clearly she was altered when presented to the emergency room. Here she has had workup for syncope she has comorbid medical problems include rheumatoid arthritis lupus, obesity. On admission she was started on low dose of methadone 5 mg twice daily which I completely agree with patient once again is a poor historian and therefore history of analgesic use and/or abuse is unclear. She seems to be very histrionic or evasive but clearly she states she is not having discomfort at this time there is no clear change in her mood sleeping patterns. She denies any systemic symptoms associated with use of her pain medications, since here she has not been asking for increasing dosages or changing routes of administration. I do not know whether or not she has had a history of drug use she is again very unclear and histrionic. Past Surgical History Past Surgical Hx: other (L1-5 back surgery, femur fracture surgery, recent left AKA, tonsil surgery ) Social History Alcohol Use: none Smoking Status: Never smoker Drug Use: other (Former [place] abuse) Exam/Review of Systems Vital Signs Vitals Vital Signs Date Time Temp Pulse Resp B/P Pulse Ox O2 Delivery O2 Flow Rate FiO2 09/17/16 12:00 98.0 60 20 122/59 98 09/15/16 13:37 Room Air Intake and Output 09/16/16 09/16/16 09/17/16 15:00 23:00 07:00 Intake Total 900 ml 1400 ml Balance 900 ml 1400 ml Exam Constitutional: other (Unclear, rambling thoughts, histrionic, difficult to focus her) Psych: confusion Neck: non-tender, supple Respiratory: clear to auscultation, normal air movement Cardiovascular: nl pulses, regular rate and rhythm Gastrointestinal: nl liver, spleen, non-tender, soft Neurological: SAFE TECHNICIAN II-XII intact, nl mental status, nl speech, nl strength Results Result Diagram: 09/17/1615 09/17/16 0715 Results 24 hrs Laboratory Tests Test 09/16/16 18:35 09/17/16 07:15 Hemoglobin A1c 4.5 Triglycerides Level 77 Cholesterol Level 209 H LDL Cholesterol, Calculated 141 HDL Cholesterol 53 Cholesterol/HDL Ratio 3.9 White Blood Count 7.0 Red Blood Count 3.90 #L Hemoglobin 9.3 #L Hematocrit 31.5 #L Mean Corpuscular Volume 80.8 L Mean Corpuscular Hemoglobin 23.8 L Mean Corpuscular Hemoglobin Concent 29.5 L Red Cell Distribution Width 18.8 H Platelet Count 280 # Mean Platelet Volume 10.3 Neutrophils % 67.0 Lymphocytes % 14.3 L Monocytes % 13.3 H Eosinophils % 4.4 Basophils % 0.6 Nucleated Red Blood Cells % 0.0 Neutrophils # 4.7 Lymphocytes # 1.0 Monocytes # 0.9 Eosinophils # 0.3 Basophils # 0.0 Nucleated Red Blood Cells # 0.0 Sodium Level 143 Potassium Level 3.7 Chloride Level 107 Carbon Dioxide Level 23 Anion Gap 17 #H Blood Urea Nitrogen 13 Creatinine 0.65 Glucose Level 88 # Calcium Level 8.4 Medications Medications Current Medications Ondansetron HCl (Zofran Inj) 4 mg Q6H PRN IV NAUSEA AND/OR VOMITING; Start 09/15 at 13:00 Acetaminophen (Tylenol Tab) 650 mg Q6H PRN PO PAIN LEVEL 1-3 OR FEVER Last administered on 09/16/16t 11:58; Admin Dose 650 MG; Start 09/15/16 at 13:00 Docusate Sodium (Colace) 100 mg Q12H PRN PO CONSTIPATION; Start 09/15/16 at 13: 00 Magnesium Hydroxide (Milk Of Mag) 30 ml DAILY PRN PO CONSTIPATION; Start at 13:00 Sodium Biphosphate/ Sodium Phosphate (Fleet Enema) 133 ml DAILY PRN [place] CONSTIPATION; Start 09/15/16 at 13:00 Lorazepam 0.5 mg 0.5 mg Q6H PRN IV ANXIETY Last administered on 09/17/16 09:30 ; Admin Dose 0.5 MG; Start 09/15/16 at 13:00 Sodium Chloride (NS) 1,000 ml @ 100 mls/hr Q10H IV Last administered on 02:40; Admin Dose 100 MLS/HR; Start 09/15/16 at 12:55 Hydralazine HCl (Apresoline) 10 mg Q6H PRN IV ELEVATED BLOOD PRESSURE; Start at 13:00 Nitroglycerin (Nitroglycerin (Sl Tab) 0.4 Mg) 1 tab Q5M PRN SL ANGINA; Start at 13:00 Hydroxychloroquine Sulfate (Plaquenil) 200 mg BID PO Last administered on 09:22; Admin Dose 200 MG; Start 09/15/16 at 21:00 Pantoprazole (Protonix Tab) 40 mg DAILY PO Last administered on 09/17/16 09:22 ; Admin Dose 40 MG; Start 09/16/16 at 09:00 Methadone HCl 5 mg 5 mg BID PO Last administered on 09/17/16 09:22; Admin Dose 5 MG; Start 09/15/16 at 21:00 Aztreonam (Azactam 1gm/NS (Pmx)) 50 ml @ 100 mls/hr DAILY IVPB Last administered on 09/17/16 09:22; Admin Dose 100 MLS/HR; Start 09/17/16 at 09:00 IV Flush (NS 10 ml) 10 ml PRN PRN IV IV PROTOCOL; Start 09/16/16 at 17:30 Tramadol HCl (Ultram) 50 mg Q6H PRN PO PAIN LEVEL 6-10 Last administered on 09/17 09:57; Admin Dose 50 MG; Start 09/16/16 at 17:30 DONNA POLLOCK Sep 17, 2016 12:25
--- NOTE | 2016-09-17 12:56 | PN ---
Date/Time of Note Date/Time of Note DATE: 09/17/16 TIME: 12:53 Assessment/Plan VTE Prophylaxis VTE Prophylaxis Intervention: SCD's Lines/Catheters IV Catheter Type (from Nrsg): PICC Line Central line still needed: Yes Urinary Cath still in place: No Assessment/Plan Chief Complaint/Hosp Course Assessment and plan: 61-year-old female found down at home, with recent left AKA , history of rheumatoid arthritis and lupus, and [place] abuse. Differential diagnosis includes polypharmacy, less likely would include stroke as head CT was negative. Less likely is also seizure, or [place]. 1. Syncope: Again head CT negative. Likely secondary to polypharmacy. -Follow-up pain management consult, although, again patient refusing correction -Continue to hold her home pain medicines for now -Upon discussion with pain management team, continue low-dose methadone twice daily 2. History of rheumatoid arthritis monitor, follow-up pain management doctor recommended 3. Lupus: No present issues continue to monitor for now 4. Recent AKA: Follow-up PT consult, social work consult as well for possible placement 5. GI prophylaxis: PPI Problems: Subjective 24 Hr Interval Summary Free Text/Dictation Per nursing staff, patient more alert today. Refusing correction facility placement. Exam/Review of Systems Vital Signs Vitals Vital Signs Date Time Temp Pulse Resp B/P Pulse Ox O2 Delivery O2 Flow Rate FiO2 09/17/16 12:23 70 09/17/16 12:00 98.0 20 122/59 98 09/15/16 13:37 Room Air Intake and Output 09/16/16 09/16/16 09/17/16 15:00 23:00 07:00 Intake Total 900 ml 1400 ml Balance 900 ml 1400 ml Exam General: Lying in bed, somewhat less lethargic HEENT: Pupils equal round reactive to light extraocular muscles are intact Neck: Supple Respiratory: Clear to auscultation bilaterally Cardiovascular: S1-S2 heard, no rubs or gallops GI: Nontender, nondistended, soft, no rebound or guarding Muscular skeletal: Left AKA present. No lower extremity edema right lower extremity Neuro: No signs of any focal deficits Results Result Diagram: 09/17/16 0715 09/17/16 0715 Results 24 hrs Laboratory Tests Test 09/16/16 18:35 09/17/16 07:15 Hemoglobin A1c 4.5 Triglycerides Level 77 Cholesterol Level 209 H LDL Cholesterol, Calculated 141 HDL Cholesterol 53 Cholesterol/HDL Ratio 3.9 White Blood Count 7.0 Red Blood Count 3.90 #L Hemoglobin 9.3 #L Hematocrit 31.5 #L Mean Corpuscular Volume 80.8 L Mean Corpuscular Hemoglobin 23.8 L Mean Corpuscular Hemoglobin Concent 29.5 L Red Cell Distribution Width 18.8 H Platelet Count 280 # Mean Platelet Volume 10.3 Neutrophils % 67.0 Lymphocytes % 14.3 L Monocytes % 13.3 H Eosinophils % 4.4 Basophils % 0.6 Nucleated Red Blood Cells % 0.0 Neutrophils # 4.7 Lymphocytes # 1.0 Monocytes # 0.9 Eosinophils # 0.3 Basophils # 0.0 Nucleated Red Blood Cells # 0.0 Sodium Level 143 Potassium Level 3.7 Chloride Level 107 Carbon Dioxide Level 23 Anion Gap 17 #H Blood Urea Nitrogen 13 Creatinine 0.65 Glucose Level 88 # Calcium Level 8.4 Medications Medications Current Medications Ondansetron HCl (Zofran Inj) 4 mg Q6H PRN IV NAUSEA AND/OR VOMITING; Start 09/15 at 13:00 Acetaminophen (Tylenol Tab) 650 mg Q6H PRN PO PAIN LEVEL 1-3 OR FEVER Last administered on 09/16/16 11:58; Admin Dose 650 MG; Start 09/15/16 at 13:00 Docusate Sodium (Colace) 100 mg Q12H PRN PO CONSTIPATION; Start 09/15/16 at 13: 00 Magnesium Hydroxide (Milk Of Mag) 30 ml DAILY PRN PO CONSTIPATION; Start at 13:00 Sodium Biphosphate/ Sodium Phosphate (Fleet Enema) 133 ml DAILY PRN [place] CONSTIPATION; Start 09/15/16 at 13:00 Lorazepam 0.5 mg 0.5 mg Q6H PRN IV ANXIETY Last administered on 09/17/16 09:30 ; Admin Dose 0.5 MG; Start 09/15/16 at 13:00 Sodium Chloride (NS) 1,000 ml @ 100 mls/hr Q10H IV Last administered on 02:40; Admin Dose 100 MLS/HR; Start 09/15/16 at 12:55 Hydralazine HCl (Apresoline) 10 mg Q6H PRN IV ELEVATED BLOOD PRESSURE; Start at 13:00 Nitroglycerin (Nitroglycerin (Sl Tab) 0.4 Mg) 1 tab Q5M PRN SL ANGINA; Start at 13:00 Hydroxychloroquine Sulfate (Plaquenil) 200 mg BID PO Last administered on 09:22; Admin Dose 200 MG; Start 09/15/16 at 21:00 Pantoprazole (Protonix Tab) 40 mg DAILY PO Last administered on 09/17/16 09:22 ; Admin Dose 40 MG; Start 09/16/16 at 09:00 Methadone HCl 5 mg 5 mg BID PO Last administered on 09/17/16 09:22; Admin Dose 5 MG; Start 09/15/16 at 21:00 Aztreonam (Azactam 1gm/NS (Pmx)) 50 ml @ 100 mls/hr DAILY IVPB Last administered on 09/17/16 09:22; Admin Dose 100 MLS/HR; Start 09/17/16 at 09:00 IV Flush (NS 10 ml) 10 ml PRN PRN IV IV PROTOCOL; Start 09/16/16 at 17:30 Tramadol HCl (Ultram) 50 mg Q6H PRN PO PAIN LEVEL 6-10 Last administered on 09/17 09:57; Admin Dose 50 MG; Start 09/16/16 at 17:30 Procedures Procedures 2D ECHO: Conclusions 1. The left ventricle is normal in size and systolic function. 2. Estimated left ventricular ejection fraction of 60%. 3. Mild concentric left ventricular hypertrophy. RAYA JOAQUIN Sep 17, 2016 12:55
[2016-09-17] MEDS: MEROPENEM 1 GM/50ML(PMX) 50 ML IVPB SCH ×2 (15:05→22:24)
[2016-09-18] VITALS (14 sets, daily range): BP systolic 122–148; BP diastolic 60–66; PULSE 60–85; RESP 17–20
[2016-09-18] MEDS: SOD CHLORIDE 0.9% 1,000 ML IV SCH ×4 (01:30→20:24)
[2016-09-18] MEDS: traMADol 50 MG TAB PO PRN ×3 (03:29→23:22)
[2016-09-18] MEDS: LEVOTHYROXINE 112 MCG TAB PO SCH (07:03)
[2016-09-18 08:01] LABS: BASOPHILS % 0.5 % (0.0-2.0); EOSINOPHILS # 0.4 10^3/ul (0.0-0.5); EOSINOPHILS % 6.2 % (0.0-7.0); HEMATOCRIT 30.6 % (37.0-47.0); HEMOGLOBIN 9.2 g/dl (12.0-16.0); LYMPHOCYTES # 1.1 10^3/ul (0.8-2.9); LYMPHOCYTES % 18.7 % (15.0-51.0); MEAN CORPUSCULAR HEMOGLOBIN 24.3 pg (29.0-33.0); MEAN CORPUSCULAR HGB CONC 30.1 g/dl (32.0-37.0); MEAN PLATELET VOLUME 9.9 fl (7.4-10.4); MONOCYTE # 0.7 10^3/ul (0.3-0.9); NEUTROPHIL # 3.8 10^3/ul (1.6-7.5); NEUTROPHILS % 62.4 % (39.0-77.0); PLATELET COUNT 261 10^3/UL (140-415); RED BLOOD COUNT 3.78 10^6/ul (4.20-5.40); RED CELL DISTRIBUTION WIDTH 18.5 % (11.5-14.5); WHITE BLOOD COUNT 6.1 10^3/ul (4.8-10.8)
[2016-09-18 08:20] LABS: CALCIUM 8.4 mg/dl (8.4-10.2); CREATININE 0.62 mg/dl (0.44-1.00); POTASSIUM 3.9 mmol/L (3.5-5.1)
[2016-09-18] MEDS: MEROPENEM 1 GM/50ML(PMX) 50 ML IVPB SCH ×2 (08:25→20:23)
[2016-09-18] MEDS: METHADONE 5 MG TAB PO SCH ×2 (08:26→20:24)
[2016-09-18] MEDS: HYDROXYCHLOROQUINE 200 MG TAB PO SCH ×2 (08:26→20:24)
[2016-09-18] MEDS: PANTOPRAZOLE (EC) 40 MG TAB PO SCH (08:26)
--- NOTE | 2016-09-18 14:52 | PN ---
Date/Time of Note Date/Time of Note DATE: 09/18/16 TIME: 14:29 Assessment/Plan VTE Prophylaxis VTE Prophylaxis Intervention: SCD's Lines/Catheters IV Catheter Type (from Nrsg): PICC Line Central line still needed: Yes Urinary Cath still in place: No Assessment/Plan Chief Complaint/Hosp Course Assessment and plan: 61-year-old female found down at home, with recent left AKA , history of rheumatoid arthritis and lupus, and [place] abuse. Differential diagnosis includes polypharmacy, less likely would include stroke as head CT was negative. Less likely is also seizure, or [place]. 1. Syncope: Again head CT negative. Likely secondary to polypharmacy. -Follow-up pain management consult recommendations, although, again patient refusing [facility] -Continue to hold her home pain medicines for now -Upon discussion with pain management team, continue low-dose methadone twice daily 2. History of rheumatoid arthritis monitor, follow-up pain management doctor recommended 3. Lupus: No present issues continue to monitor for now 4. Recent AKA: Follow-up PT consult, social work consult as well for possible placement 5. GI prophylaxis: PPI Problems: Subjective 24 Hr Interval Summary Free Text/Dictation Patient a bit more awake and alert today, still refusing [facility] facility. Exam/Review of Systems Vital Signs Vitals Vital Signs Date Time Temp Pulse Resp B/P Pulse Ox O2 Delivery O2 Flow Rate FiO2 09/18/16 12:15 60 09/18/16 12:11 97.9 18 124/60 95 09/15/16 13:37 Room Air Intake and Output 09/17/16 09/17/16 09/18/16 15:00 23:00 07:00 Intake Total 50 ml 2050 ml 1650 ml Balance 50 ml 2050 ml 1650 ml Exam General: Lying in bed, more alert, answering questions, still loses train of thought occasionally HEENT: Pupils equal round reactive to light extraocular muscles are intact Neck: Supple Respiratory: Clear to auscultation bilaterally Cardiovascular: S1-S2 heard, no rubs or gallops GI: Nontender, nondistended, soft, no rebound or guarding Muscular skeletal: Left AKA present. No lower extremity edema right lower extremity Neuro: No signs of any focal deficits Results Result Diagram: 09/18/16 0736 09/18/16 0736 Results 24 hrs Laboratory Tests Test 09/18/16 07:36 White Blood Count 6.1 Red Blood Count 3.78 L Hemoglobin 9.2 L Hematocrit 30.6 L Mean Corpuscular Volume 81.0 L Mean Corpuscular Hemoglobin 24.3 L Mean Corpuscular Hemoglobin Concent 30.1 L Red Cell Distribution Width 18.5 H Platelet Count 261 Mean Platelet Volume 9.9 Neutrophils % 62.4 Lymphocytes % 18.7 Monocytes % 12.0 H Eosinophils % 6.2 Basophils % 0.5 Nucleated Red Blood Cells % 0.0 Neutrophils # 3.8 Lymphocytes # 1.1 Monocytes # 0.7 Eosinophils # 0.4 Basophils # 0.0 Nucleated Red Blood Cells # 0.0 Sodium Level 143 Potassium Level 3.9 Chloride Level 107 Carbon Dioxide Level 25 Anion Gap 15 Blood Urea Nitrogen 13 Creatinine 0.62 Glucose Level 87 Calcium Level 8.4 Medications Medications Current Medications Ondansetron HCl (Zofran Inj) 4 mg Q6H PRN IV NAUSEA AND/OR VOMITING; Start 09/15 at 13:00 Acetaminophen (Tylenol Tab) 650 mg Q6H PRN PO PAIN LEVEL 1-3 OR FEVER Last administered on 09/16/16 11:58; Admin Dose 650 MG; Start 09/15/16 at 13:00 Docusate Sodium (Colace) 100 mg Q12H PRN PO CONSTIPATION; Start 09/15/16 at 13: 00 Magnesium Hydroxide (Milk Of Mag) 30 ml DAILY PRN PO CONSTIPATION; Start at 13:00 Sodium Biphosphate/ Sodium Phosphate (Fleet Enema) 133 ml DAILY PRN [place] CONSTIPATION; Start 09/15/16 at 13:00 Lorazepam 0.5 mg 0.5 mg Q6H PRN IV ANXIETY Last administered on 09/17/16 09:30 ; Admin Dose 0.5 MG; Start 09/15/16 at 13:00 Sodium Chloride (NS) 1,000 ml @ 100 mls/hr Q10H IV Last administered on 08:27; Admin Dose 100 MLS/HR; Start 09/15/16 at 12:55 Hydralazine HCl (Apresoline) 10 mg Q6H PRN IV ELEVATED BLOOD PRESSURE; Start at 13:00 Nitroglycerin (Nitroglycerin (Sl Tab) 0.4 Mg) 1 tab Q5M PRN SL ANGINA; Start at 13:00 Hydroxychloroquine Sulfate (Plaquenil) 200 mg BID PO Last administered on 08:26; Admin Dose 200 MG; Start 09/15/16 at 21:00 Pantoprazole (Protonix Tab) 40 mg DAILY PO Last administered on 09/18/16 08:26 ; Admin Dose 40 MG; Start 09/16/16 at 09:00 Methadone HCl (Methadone) 5 mg BID PO Last administered on 09/18/16 08:26; Admin Dose 5 MG; Start 09/15/16 at 21:00 IV Flush (NS 10 ml) 10 ml PRN PRN IV IV PROTOCOL; Start 09/16/16 at 17:30 Tramadol HCl 50 mg 50 mg Q6H PRN PO PAIN LEVEL 6-10 Last administered on 03:29; Admin Dose 50 MG; Start 09/16/16 at 17:30 Meropenem/Sodium Chloride (Merrem 1 Gm/50 ml (Pmx)) 50 ml @ 100 mls/hr Q12 IVPB Last administered on 09/18/16 08:25; Admin Dose 100 MLS/HR; Start 09/17/16 at 14:00 RAYA JOAQUIN Sep 18, 2016 14:48
[2016-09-19] VITALS (13 sets, daily range): BP systolic 135–191; BP diastolic 62–97; PULSE 59–73; RESP 18–20
[2016-09-19] MEDS ORDERED: SUMATRIPTAN 6 MG/0.5 ML INJ SC ONE (01:00)
[2016-09-19] MEDS: LEVOTHYROXINE 112 MCG TAB PO SCH (06:01)
[2016-09-19] MEDS: SOD CHLORIDE 0.9% 1,000 ML IV SCH ×3 (06:02→16:55)
[2016-09-19] MEDS: traMADol 50 MG TAB PO PRN ×3 (06:06→17:06)
[2016-09-19 07:53] LABS: BASOPHILS % 0.4 % (0.0-2.0); EOSINOPHILS # 0.1 10^3/ul (0.0-0.5); EOSINOPHILS % 1.6 % (0.0-7.0); HEMATOCRIT 33.7 % (37.0-47.0); HEMOGLOBIN 10.4 g/dl (12.0-16.0); LYMPHOCYTES # 0.7 10^3/ul (0.8-2.9); LYMPHOCYTES % 9.6 % (15.0-51.0); MEAN CORPUSCULAR HEMOGLOBIN 24.4 pg (29.0-33.0); MEAN CORPUSCULAR HGB CONC 30.9 g/dl (32.0-37.0); MEAN CORPUSCULAR VOLUME 79.1 fl (82.0-101.0); MEAN PLATELET VOLUME 9.7 fl (7.4-10.4); MONOCYTE # 0.5 10^3/ul (0.3-0.9); MONOCYTES % 7.7 % (0.0-11.0); NEUTROPHIL # 5.5 10^3/ul (1.6-7.5); NEUTROPHILS % 80.4 % (39.0-77.0); PLATELET COUNT 317 10^3/UL (140-415); RED BLOOD COUNT 4.26 10^6/ul (4.20-5.40); WHITE BLOOD COUNT 6.8 10^3/ul (4.8-10.8)
[2016-09-19 08:12] LABS: CREATININE 0.52 mg/dl (0.44-1.00)
[2016-09-19] MEDS: METHADONE 5 MG TAB PO SCH ×2 (08:55→20:37)
[2016-09-19] MEDS: MEROPENEM 1 GM/50ML(PMX) 50 ML IVPB SCH ×2 (08:55→20:36)
[2016-09-19] MEDS: HYDROXYCHLOROQUINE 200 MG TAB PO SCH ×2 (08:56→20:36)
[2016-09-19] MEDS: PANTOPRAZOLE (EC) 40 MG TAB PO SCH (08:56)
--- NOTE | 2016-09-19 12:48 | PN ---
Date/Time of Note Date/Time of Note DATE: 09/19/16 TIME: 12:43 Assessment/Plan VTE Prophylaxis VTE Prophylaxis Intervention: SCD's Lines/Catheters IV Catheter Type (from Nrsg): PICC Line Central line still needed: Yes Urinary Cath still in place: No Assessment/Plan Chief Complaint/Hosp Course Assessment and plan: 61-year-old female found down at home, with recent left AKA , history of rheumatoid arthritis and lupus, and [place] abuse. Differential diagnosis includes polypharmacy, less likely would include stroke as head CT was negative. Less likely is also seizure, or [place]. 1. Syncope: Again head CT negative. Likely secondary to polypharmacy. -Follow-up pain management consult recommendations, although, again patient refusing residential -Continue to hold her home pain medicines for now -Upon discussion with pain management team, continue low-dose methadone twice daily 2. History of rheumatoid arthritis monitor, follow-up pain management doctor recommended, continue Plaquenil, tramadol as needed 3. Lupus: No present issues continue to monitor for now, on Plaquenil 4. Recent AKA: Follow-up PT consult, social work consult as well for possible placement although again patient has been refusing this 5. GI prophylaxis: PPI 6. ESBL E. coli UTI: Multidrug-resistant, continue meropenem, likely will need this antibiotic for another 4 days. Case management is working on setting this up for home use. Patient did receive PICC line earlier this admission as well ( she has poor IV access as well) Dispo: Home likely in 24 hours as patient has been refusing residential facility placement despite her recent left AKA. She does have caregiver at home , case packer and sealer has been setting up home health PT and home health nursing as well. Again she will need IV meropenem for another 4 days at home. It is recommended by pain management team to NOT DISCAHRGE HER ON METHADONE because of her abuse history. So please DC this before discharge home. Problems: Subjective 24 Hr Interval Summary Free Text/Dictation Patient with some mild headache symptoms last night otherwise no acute events overnight. Exam/Review of Systems Vital Signs Vitals Vital Signs Date Time Temp Pulse Resp B/P Pulse Ox O2 Delivery O2 Flow Rate FiO2 09/19/16 11:49 98.1 70 20 97 09/15/16 13:37 Room Air Intake and Output 8/509/18/16 09/19/16 15:00 23:00 07:00 Intake Total 50 ml 1350 ml 1300 ml Balance 50 ml 1350 ml 1300 ml Exam General: Lying in bed, more alert, answering questions, still loses train of thought occasionally HEENT: Pupils equal round reactive to light extraocular muscles are intact Neck: Supple Respiratory: Clear to auscultation bilaterally Cardiovascular: S1-S2 heard, no rubs or gallops GI: Nontender, nondistended, soft, no rebound or guarding Muscular skeletal: Left AKA present. No lower extremity edema right lower extremity Neuro: No signs of any focal deficits Results Result Diagram: 09/19/16 0655 09/19/16 0655 Results 24 hrs Laboratory Tests Test 09/19/16 06:55 White Blood Count 6.8 Red Blood Count 4.26 Hemoglobin 10.4 L Hematocrit 33.7 L Mean Corpuscular Volume 79.1 L Mean Corpuscular Hemoglobin 24.4 L Mean Corpuscular Hemoglobin Concent 30.9 L Red Cell Distribution Width 18.0 H Platelet Count 317 # Mean Platelet Volume 9.7 Neutrophils % 80.4 H Lymphocytes % 9.6 L Monocytes % 7.7 Eosinophils % 1.6 Basophils % 0.4 Nucleated Red Blood Cells % 0.0 Neutrophils # 5.5 Lymphocytes # 0.7 L Monocytes # 0.5 Eosinophils # 0.1 Basophils # 0.0 Nucleated Red Blood Cells # 0.0 Sodium Level 144 Potassium Level 4.0 Chloride Level 106 Carbon Dioxide Level 24 Anion Gap 18 H Blood Urea Nitrogen 9 Creatinine 0.52 Glucose Level 100 Calcium Level 9.0 Medications Medications Current Medications Ondansetron HCl (Zofran Inj) 4 mg Q6H PRN IV NAUSEA AND/OR VOMITING Last administered on 09/19/16 06:02; Admin Dose 4 MG; Start 09/15/16 at 13:00 Acetaminophen (Tylenol Tab) 650 mg Q6H PRN PO PAIN LEVEL 1-3 OR FEVER Last administered on 09/16/16 11:58; Admin Dose 650 MG; Start 09/15/16 at 13:00 Docusate Sodium (Colace) 100 mg Q12H PRN PO CONSTIPATION Last administered on 20:23; Admin Dose 100 MG; Start 09/15/16 at 13:00 Magnesium Hydroxide (Milk Of Mag) 30 ml DAILY PRN PO CONSTIPATION; Start at 13:00 Sodium Biphosphate/ Sodium Phosphate (Fleet Enema) 133 ml DAILY PRN [place] CONSTIPATION; Start 09/15/16 at 13:00 Lorazepam 0.5 mg 0.5 mg Q6H PRN IV ANXIETY Last administered on 09/17/16 09:30 ; Admin Dose 0.5 MG; Start 09/15/16 at 13:00 Sodium Chloride (NS) 1,000 ml @ 100 mls/hr Q10H IV Last administered on 20:24; Admin Dose 100 MLS/HR; Start 09/15/16 at 12:55 Hydralazine HCl (Apresoline) 10 mg Q6H PRN IV ELEVATED BLOOD PRESSURE Last administered on 09/19/16 03:23; Admin Dose 10 MG; Start 09/15/16 at 13:00 Nitroglycerin (Nitroglycerin (Sl Tab) 0.4 Mg) 1 tab Q5M PRN SL ANGINA; Start at 13:00 Hydroxychloroquine Sulfate (Plaquenil) 200 mg BID PO Last administered on 08:56; Admin Dose 200 MG; Start 09/15/16 at 21:00 Pantoprazole (Protonix Tab) 40 mg DAILY PO Last administered on 09/19/16 08:56 ; Admin Dose 40 MG; Start 09/16/16 at 09:00 Methadone HCl (Methadone) 5 mg BID PO Last administered on 09/19/16 08:55; Admin Dose 5 MG; Start 09/15/16 at 21:00 IV Flush (NS 10 ml) 10 ml PRN PRN IV IV PROTOCOL; Start 09/16/16 at 17:30 Tramadol HCl 50 mg 50 mg Q6H PRN PO PAIN LEVEL 6-10 Last administered on 11:12; Admin Dose 50 MG; Start 09/16/16 at 17:30 Meropenem/Sodium Chloride (Merrem 1 Gm/50 ml (Pmx)) 50 ml @ 100 mls/hr Q12 IVPB Last administered on 09/19/16 08:55; Admin Dose 100 MLS/HR; Start 09/17/16 at 14:00 RAYA JOAQUIN Sep 19, 2016 12:47
[2016-09-19] MEDS: ACETAMINOPHEN 325 MG TAB PO PRN ×2 (15:12→22:10)
[2016-09-20] VITALS (11 sets, daily range): BP systolic 144–176; BP diastolic 61–76; PULSE 53–69; RESP 18–20
[2016-09-20] MEDS: SOD CHLORIDE 0.9% 1,000 ML IV SCH ×2 (01:41→11:37)
[2016-09-20] MEDS: traMADol 50 MG TAB PO PRN ×2 (02:39→14:23)
[2016-09-20] MEDS: ACETAMINOPHEN 325 MG TAB PO PRN ×3 (05:19→17:32)
[2016-09-20 06:35] LABS: BASOPHILS % 0.6 % (0.0-2.0); EOSINOPHILS # 0.4 10^3/ul (0.0-0.5); EOSINOPHILS % 6.5 % (0.0-7.0); HEMATOCRIT 32.9 % (37.0-47.0); HEMOGLOBIN 9.9 g/dl (12.0-16.0); LYMPHOCYTES % 16.5 % (15.0-51.0); MEAN CORPUSCULAR HEMOGLOBIN 23.9 pg (29.0-33.0); MEAN CORPUSCULAR HGB CONC 30.1 g/dl (32.0-37.0); MEAN CORPUSCULAR VOLUME 79.5 fl (82.0-101.0); MEAN PLATELET VOLUME 9.7 fl (7.4-10.4); MONOCYTE # 0.6 10^3/ul (0.3-0.9); MONOCYTES % 9.3 % (0.0-11.0); NEUTROPHIL # 4.2 10^3/ul (1.6-7.5); NEUTROPHILS % 66.6 % (39.0-77.0); PLATELET COUNT 318 10^3/UL (140-415); RED BLOOD COUNT 4.14 10^6/ul (4.20-5.40); RED CELL DISTRIBUTION WIDTH 18.5 % (11.5-14.5); WHITE BLOOD COUNT 6.3 10^3/ul (4.8-10.8)
[2016-09-20 06:55] LABS: MAGNESIUM 1.7 mg/dl (1.7-2.5); PHOSPHORUS 3.2 mg/dl (2.5-4.9)
[2016-09-20] MEDS: LEVOTHYROXINE 112 MCG TAB PO SCH (07:00)
[2016-09-20 07:24] LABS: CALCIUM 8.8 mg/dl (8.4-10.2); CREATININE 0.56 mg/dl (0.44-1.00); POTASSIUM 3.7 mmol/L (3.5-5.1)
[2016-09-20] MEDS: METHADONE 5 MG TAB PO SCH ×2 (08:24→22:04)
[2016-09-20] MEDS: HYDROXYCHLOROQUINE 200 MG TAB PO SCH ×2 (08:24→22:04)
[2016-09-20] MEDS: PANTOPRAZOLE (EC) 40 MG TAB PO SCH (08:24)
[2016-09-20] MEDS: MEROPENEM 1 GM/50ML(PMX) 50 ML IVPB SCH ×2 (08:26→21:03)
--- NOTE | 2016-09-20 15:01 | CONS ---
Date/Time of Note Date/Time of Note DATE: 09/20/16 TIME: 15:00 Consultation Date/Type/Reason Admit Date/Time Sep 15, 2016 at 12:29 Date of Consultation: Sep 20, 2016 Type of Consultation: ID Reason for Consultation Antibiotic management Psychological: confusion Past Surgical History Past Surgical Hx: other (L1-5 back surgery, femur fracture surgery, recent left AKA, tonsil surgery ) Social History Alcohol Use: none Smoking Status: Never smoker Drug Use: other (Former [place] abuse) Exam/Review of Systems Vital Signs Vitals Vital Signs Date Time Temp Pulse Resp B/P Pulse Ox O2 Delivery O2 Flow Rate FiO2 09/20/16 12:12 69 09/20/16 11:50 98.2 20 154/66 94 Intake and Output 09/19/16 09/19/16 09/20/16 15:00 23:00 07:00 Intake Total 100 ml 1500 ml 2000 ml Balance 100 ml 1500 ml 2000 ml Results Result Diagram: 09/20/16 0543 09/20/16 0543 Results 24 hrs Laboratory Tests Test 09/20/16 05:43 White Blood Count 6.3 Red Blood Count 4.14 L Hemoglobin 9.9 L Hematocrit 32.9 L Mean Corpuscular Volume 79.5 L Mean Corpuscular Hemoglobin 23.9 L Mean Corpuscular Hemoglobin Concent 30.1 L Red Cell Distribution Width 18.5 H Platelet Count 318 Mean Platelet Volume 9.7 Neutrophils % 66.6 Lymphocytes % 16.5 Monocytes % 9.3 Eosinophils % 6.5 Basophils % 0.6 Nucleated Red Blood Cells % 0.0 Neutrophils # 4.2 Lymphocytes # 1.0 Monocytes # 0.6 Eosinophils # 0.4 Basophils # 0.0 Nucleated Red Blood Cells # 0.0 Sodium Level 142 Potassium Level 3.7 Chloride Level 104 Carbon Dioxide Level 24 Anion Gap 18 H Blood Urea Nitrogen 10 Creatinine 0.56 Glucose Level 92 Calcium Level 8.8 Phosphorus Level 3.2 Magnesium Level 1.7 Medications Medications Current Medications Ondansetron HCl (Zofran Inj) 4 mg Q6H PRN IV NAUSEA AND/OR VOMITING Last administered on 09/19/16 06:02; Admin Dose 4 MG; Start 09/15/16 at 13:00 Acetaminophen (Tylenol Tab) 650 mg Q6H PRN PO PAIN LEVEL 1-3 OR FEVER Last administered on 09/20/16 11:37; Admin Dose 650 MG; Start 09/15/16 at 13:00 Docusate Sodium (Colace) 100 mg Q12H PRN PO CONSTIPATION Last administered on 20:23; Admin Dose 100 MG; Start 09/15/16 at 13:00 Magnesium Hydroxide (Milk Of Mag) 30 ml DAILY PRN PO CONSTIPATION; Start at 13:00 Sodium Biphosphate/ Sodium Phosphate (Fleet Enema) 133 ml DAILY PRN [place] CONSTIPATION; Start 09/15/16 at 13:00 Lorazepam (Ativan) 0.5 mg Q6H PRN IV ANXIETY Last administered on 09/17/16 09: 30; Admin Dose 0.5 MG; Start 09/15/16 at 13:00 Hydralazine HCl (Apresoline) 10 mg Q6H PRN IV ELEVATED BLOOD PRESSURE Last administered on 09/19/16 03:23; Admin Dose 10 MG; Start 09/15/16 at 13:00 Nitroglycerin (Nitroglycerin (Sl Tab) 0.4 Mg) 1 tab Q5M PRN SL ANGINA; Start at 13:00 Hydroxychloroquine Sulfate (Plaquenil) 200 mg BID PO Last administered on 08:24; Admin Dose 200 MG; Start 09/15/16 at 21:00 Pantoprazole (Protonix Tab) 40 mg DAILY PO Last administered on 09/20/16 08:24 ; Admin Dose 40 MG; Start 09/16/16 at 09:00 Methadone HCl (Methadone) 5 mg BID PO Last administered on 09/20/16 08:24; Admin Dose 5 MG; Start 09/15/16 at 21:00 IV Flush (NS 10 ml) 10 ml PRN PRN IV IV PROTOCOL; Start 09/16/16 at 17:30 Tramadol HCl 50 mg 50 mg Q6H PRN PO PAIN LEVEL 6-10 Last administered on 14:23; Admin Dose 50 MG; Start 09/16/16 at 17:30 Meropenem/Sodium Chloride (Merrem 1 Gm/50 ml (Pmx)) 50 ml @ 100 mls/hr Q12 IVPB Last administered on 09/20/16 08:26; Admin Dose 100 MLS/HR; Start 09/17/16 at 14:00 MALDONADO GREGORY MD Sep 20, 2016 15:01
--- NOTE | 2016-09-20 15:05 | PN ---
Date/Time of Note Date/Time of Note DATE: 09/20/16 TIME: 15:04 Assessment/Plan VTE Prophylaxis VTE Prophylaxis Intervention: SCD's Lines/Catheters IV Catheter Type (from Nrsg): PICC Line Central line still needed: No Urinary Cath still in place: No Assessment/Plan Assessment/Plan 61-year-old female found down at home, with recent left AKA, history of rheumatoid arthritis and lupus, and [place] abuse. Suspect LOC 2/2 pain meds v ? UTI? as neuro and cardiovascular work ups not revealing 1. Syncope: Likely secondary to polypharmacy. -Follow-up pain management consult recommendations, although, again patient refusing [facility] -pain meds as per main magement team 2. History of rheumatoid arthritis/SLE: cont current meds 3. Recent AKA: Follow-up PT consult, social work consult as well for possible placement although again patient has been refusing this 4. GERD: cont home PPI 5. ESBL E. coli UTI: on current abx. anticipate 7 day treatment course ID on consult dispo: was going to be discharge with [facility] today but regular urgent care technician not available. SW/CM aware It is recommended by pain management team to NOT DISCHARGE HER ON METHADONE because of her abuse history. Subjective 24 Hr Interval Summary Free Text/Dictation Plan was for pt to go home today but now her regular caregiver is not available Exam/Review of Systems Vital Signs Vitals Vital Signs Date Time Temp Pulse Resp B/P Pulse Ox O2 Delivery O2 Flow Rate FiO2 09/20/16 12:12 69 09/20/16 11:50 98.2 20 154/66 94 Intake and Output 09/19/16 09/19/16 09/20/16 15:00 23:00 07:00 Intake Total 100 ml 1500 ml 2000 ml Balance 100 ml 1500 ml 2000 ml Exam nad, sitting up in bed no mrg lungs clear abd soft LLE stump site c/d/i Results Result Diagram: 09/20/16 0543 09/20/16 0543 Results 24 hrs Laboratory Tests Test 09/20/16 05:43 White Blood Count 6.3 Red Blood Count 4.14 L Hemoglobin 9.9 L Hematocrit 32.9 L Mean Corpuscular Volume 79.5 L Mean Corpuscular Hemoglobin 23.9 L Mean Corpuscular Hemoglobin Concent 30.1 L Red Cell Distribution Width 18.5 H Platelet Count 318 Mean Platelet Volume 9.7 Neutrophils % 66.6 Lymphocytes % 16.5 Monocytes % 9.3 Eosinophils % 6.5 Basophils % 0.6 Nucleated Red Blood Cells % 0.0 Neutrophils # 4.2 Lymphocytes # 1.0 Monocytes # 0.6 Eosinophils # 0.4 Basophils # 0.0 Nucleated Red Blood Cells # 0.0 Sodium Level 142 Potassium Level 3.7 Chloride Level 104 Carbon Dioxide Level 24 Anion Gap 18 H Blood Urea Nitrogen 10 Creatinine 0.56 Glucose Level 92 Calcium Level 8.8 Phosphorus Level 3.2 Magnesium Level 1.7 Medications Medications Current Medications Ondansetron HCl (Zofran Inj) 4 mg Q6H PRN IV NAUSEA AND/OR VOMITING Last administered on 09/19/16 06:02; Admin Dose 4 MG; Start 09/15/16 at 13:00 Acetaminophen (Tylenol Tab) 650 mg Q6H PRN PO PAIN LEVEL 1-3 OR FEVER Last administered on 09/20/16 11:37; Admin Dose 650 MG; Start 09/15/16 at 13:00 Docusate Sodium (Colace) 100 mg Q12H PRN PO CONSTIPATION Last administered on 20:23; Admin Dose 100 MG; Start 09/15/16 at 13:00 Magnesium Hydroxide (Milk Of Mag) 30 ml DAILY PRN PO CONSTIPATION; Start at 13:00 Sodium Biphosphate/ Sodium Phosphate (Fleet Enema) 133 ml DAILY PRN [place] CONSTIPATION; Start 09/15/16 at 13:00 Lorazepam (Ativan) 0.5 mg Q6H PRN IV ANXIETY Last administered on 09/17/16 09: 30; Admin Dose 0.5 MG; Start 09/15/16 at 13:00 Hydralazine HCl (Apresoline) 10 mg Q6H PRN IV ELEVATED BLOOD PRESSURE Last administered on 09/19/16 03:23; Admin Dose 10 MG; Start 09/15/16 at 13:00 Nitroglycerin (Nitroglycerin (Sl Tab) 0.4 Mg) 1 tab Q5M PRN SL ANGINA; Start at 13:00 Hydroxychloroquine Sulfate (Plaquenil) 200 mg BID PO Last administered on 08:24; Admin Dose 200 MG; Start 09/15/16 at 21:00 Pantoprazole (Protonix Tab) 40 mg DAILY PO Last administered on 09/20/16 08:24 ; Admin Dose 40 MG; Start 09/16/16 at 09:00 Methadone HCl (Methadone) 5 mg BID PO Last administered on 09/20/16 08:24; Admin Dose 5 MG; Start 09/15/16 at 21:00 IV Flush (NS 10 ml) 10 ml PRN PRN IV IV PROTOCOL; Start 09/16/16 at 17:30 Tramadol HCl 50 mg 50 mg Q6H PRN PO PAIN LEVEL 6-10 Last administered on 14:23; Admin Dose 50 MG; Start 09/16/16 at 17:30 Meropenem/Sodium Chloride (Merrem 1 Gm/50 ml (Pmx)) 50 ml @ 100 mls/hr Q12 IVPB Last administered on 09/20/16 08:26; Admin Dose 100 MLS/HR; Start 09/17/16 at 14:00 JAMES XAVIER MD Sep 20, 2016 15:05
--- NOTE | 2016-09-20 16:17 | PN ---
Date/Time of Note Date/Time of Note DATE: 09/20/16 TIME: 16:14 Assessment/Plan VTE Prophylaxis VTE Prophylaxis Intervention: SCD's Lines/Catheters IV Catheter Type (from Nrsg): PICC Line Central line still needed: Yes (IV access for ESBL UTI, Poor peripheral access ) Urinary Cath still in place: No Assessment/Plan Assessment/Plan 1. Syncope: Again head CT negative. Likely secondary to polypharmacy. -Follow-up pain management consult recommendations, although, again patient refusing senior care -Continue to hold her home pain medicines for now -Upon discussion with pain management team, continue low-dose methadone twice daily 2. History of rheumatoid arthritis monitor, follow-up pain management doctor recommended, continue Plaquenil, tramadol as needed 3. Lupus: No present issues continue to monitor for now, on Plaquenil 4. Recent AKA: Follow-up PT consult, social work consult as well for possible placement although again patient has been refusing this 5. GI prophylaxis: PPI 6. ESBL E. coli UTI: Multidrug-resistant, continue meropenem, likely will need this antibiotic for another 4 days. Case management is working on setting this up for home use. PICC line in place Dispo: pt said her caregive is not available and has not been responding to call , manager case to follow up on that, pain management to see pt Subjective 24 Hr Interval Summary Free Text/Dictation c/o intractable back pain, afebrile, BP stable Exam/Review of Systems Vital Signs Vitals Vital Signs Date Time Temp Pulse Resp B/P Pulse Ox O2 Delivery O2 Flow Rate FiO2 09/20/16 15:29 98.4 66 18 154/74 98 Intake and Output 09/19/16 09/19/16 09/20/16 15:00 23:00 07:00 Intake Total 100 ml 1500 ml 2000 ml Balance 100 ml 1500 ml 2000 ml Exam General: Lying in bed, somewhat less lethargic HEENT: Pupils equal round reactive to light extraocular muscles are intact Neck: Supple Respiratory: Clear to auscultation bilaterally Cardiovascular: S1-S2 heard, no rubs or gallops GI: Nontender, nondistended, soft, no rebound or guarding Muscular skeletal: Left AKA present. No lower extremity edema right lower extremity Neuro: No signs of any focal deficits Results Result Diagram: 09/20/16 0543 09/20/16 0543 Results 24 hrs Laboratory Tests Test 09/20/16 05:43 White Blood Count 6.3 Red Blood Count 4.14 L Hemoglobin 9.9 L Hematocrit 32.9 L Mean Corpuscular Volume 79.5 L Mean Corpuscular Hemoglobin 23.9 L Mean Corpuscular Hemoglobin Concent 30.1 L Red Cell Distribution Width 18.5 H Platelet Count 318 Mean Platelet Volume 9.7 Neutrophils % 66.6 Lymphocytes % 16.5 Monocytes % 9.3 Eosinophils % 6.5 Basophils % 0.6 Nucleated Red Blood Cells % 0.0 Neutrophils # 4.2 Lymphocytes # 1.0 Monocytes # 0.6 Eosinophils # 0.4 Basophils # 0.0 Nucleated Red Blood Cells # 0.0 Sodium Level 142 Potassium Level 3.7 Chloride Level 104 Carbon Dioxide Level 24 Anion Gap 18 H Blood Urea Nitrogen 10 Creatinine 0.56 Glucose Level 92 Calcium Level 8.8 Phosphorus Level 3.2 Magnesium Level 1.7 Medications Medications Current Medications Ondansetron HCl (Zofran Inj) 4 mg Q6H PRN IV NAUSEA AND/OR VOMITING Last administered on 09/19/16 06:02; Admin Dose 4 MG; Start 09/15/16 at 13:00 Acetaminophen (Tylenol Tab) 650 mg Q6H PRN PO PAIN LEVEL 1-3 OR FEVER Last administered on 09/20/16 11:37; Admin Dose 650 MG; Start 09/15/16 at 13:00 Docusate Sodium (Colace) 100 mg Q12H PRN PO CONSTIPATION Last administered on 20:23; Admin Dose 100 MG; Start 09/15/16 at 13:00 Magnesium Hydroxide (Milk Of Mag) 30 ml DAILY PRN PO CONSTIPATION; Start at 13:00 Sodium Biphosphate/ Sodium Phosphate (Fleet Enema) 133 ml DAILY PRN [place] CONSTIPATION; Start 09/15/16 at 13:00 Lorazepam (Ativan) 0.5 mg Q6H PRN IV ANXIETY Last administered on 09/17/16 09: 30; Admin Dose 0.5 MG; Start 09/15/16 at 13:00 Hydralazine HCl (Apresoline) 10 mg Q6H PRN IV ELEVATED BLOOD PRESSURE Last administered on 09/19/16 03:23; Admin Dose 10 MG; Start 09/15/16 at 13:00 Nitroglycerin (Nitroglycerin (Sl Tab) 0.4 Mg) 1 tab Q5M PRN SL ANGINA; Start at 13:00 Hydroxychloroquine Sulfate (Plaquenil) 200 mg BID PO Last administered on 08:24; Admin Dose 200 MG; Start 09/15/16 at 21:00 Pantoprazole (Protonix Tab) 40 mg DAILY PO Last administered on 09/20/16 08:24 ; Admin Dose 40 MG; Start 09/16/16 at 09:00 Methadone HCl (Methadone) 5 mg BID PO Last administered on 09/20/16 08:24; Admin Dose 5 MG; Start 09/15/16 at 21:00 IV Flush (NS 10 ml) 10 ml PRN PRN IV IV PROTOCOL; Start 09/16/16 at 17:30 Tramadol HCl 50 mg 50 mg Q6H PRN PO PAIN LEVEL 6-10 Last administered on 14:23; Admin Dose 50 MG; Start 09/16/16 at 17:30 Meropenem/Sodium Chloride (Merrem 1 Gm/50 ml (Pmx)) 50 ml @ 100 mls/hr Q12 IVPB Last administered on 09/20/16 08:26; Admin Dose 100 MLS/HR; Start 09/17/16 at 14:00; Stop 09/24/16 at 14:01 ALLIE RAMESH MD Sep 20, 2016 16:17
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
[2016-09-21] MEDS: LORAZEPAM 2 MG INJ IV PRN (01:58)
[2016-09-21] MEDS: traMADol 50 MG TAB PO PRN ×2 (02:01→14:46)
[2016-09-21 02:29] VITALS: BP 170/77; RESP 18
[2016-09-21 05:56] LABS: BASOPHIL # 0.1 10^3/ul (0.0-0.1); BASOPHILS % 0.7 % (0.0-2.0); EOSINOPHILS # 0.4 10^3/ul (0.0-0.5); EOSINOPHILS % 6.3 % (0.0-7.0); HEMOGLOBIN 10.2 g/dl (12.0-16.0); LYMPHOCYTES # 1.3 10^3/ul (0.8-2.9); LYMPHOCYTES % 18.9 % (15.0-51.0); MEAN CORPUSCULAR HEMOGLOBIN 24.4 pg (29.0-33.0); MEAN CORPUSCULAR HGB CONC 30.9 g/dl (32.0-37.0); MEAN CORPUSCULAR VOLUME 78.9 fl (82.0-101.0); MEAN PLATELET VOLUME 9.9 fl (7.4-10.4); MONOCYTE # 0.6 10^3/ul (0.3-0.9); MONOCYTES % 9.4 % (0.0-11.0); NEUTROPHIL # 4.4 10^3/ul (1.6-7.5); NEUTROPHILS % 64.4 % (39.0-77.0); PLATELET COUNT 342 10^3/UL (140-415); RED BLOOD COUNT 4.18 10^6/ul (4.20-5.40); RED CELL DISTRIBUTION WIDTH 18.2 % (11.5-14.5); WHITE BLOOD COUNT 6.8 10^3/ul (4.8-10.8)
[2016-09-21] MEDS: LEVOTHYROXINE 112 MCG TAB PO SCH (06:16)
[2016-09-21] MEDS: ACETAMINOPHEN 325 MG TAB PO PRN (06:27)
[2016-09-21 06:43] LABS: CALCIUM 9.2 mg/dl (8.4-10.2); CREATININE 0.65 mg/dl (0.44-1.00)
--- NOTE | 2016-09-21 07:30 | CONS ---
Date/Time of Note Date/Time of Note DATE: 09/21/16 TIME: 07:24 Assessment/Plan Assessment/Plan Chief Complaint/Hosp Course 61-year-old female admitted patient was found altered at home recent history of discharge another hospital after recent [id number] amputation. Patient is somewhat unclear a poor historian as to her opioid use however what information I can obtain for her that she uses short acting opioid and subatrex given to her by her primary care pain management doctor. She does not recall if she took these medications but clearly she was altered when presented to the emergency room. Here she has had workup for syncope she has comorbid medical problems include rheumatoid arthritis lupus, obesity. On admission she was started on low dose of methadone 5 mg twice daily which I completely agree with patient once again is a poor historian and therefore history of analgesic use and/or abuse is unclear. She seems to be very histrionic or evasive but clearly she states she is not having discomfort at this time there is no clear change in her mood sleeping patterns. She denies any systemic symptoms associated with use of her pain medications, since here she has not been asking for increasing dosages or changing routes of administration. I do not know whether or not she has had a history of drug use she is again very unclear and histrionic. Problems: Consultation Date/Type/Reason Admit Date/Time Sep 17, 2016 at 13:31 Initial Consult Date 09/20/16 Type of Consultation: Pain management 24 HR Interval Summary Free Text/Dictation I have had a long conversation with patient once again concerning her use of opioids at home, and the fact that [place] [facility]. She has refused to go to residential unit and stated to primary care physicians that she has a caregiver, friend and would receive home health care when she is discharged. However my discussion today she does not have 24 hours 7 days a week caregiver, her friends work and cannot be available for her to go home safely and be by herself during the day. Her caregiver only has 130 hours a month allocated to patient. Patient states that she would be in bed the rest of the time at home by herself. My question to her is how she would safely go to the bathroom and or time to room hygienic needs and she had no safe answer for me. I do not think the patient is safe to go home but if she refuses residential unit I would definitely not prescribe opioids at the time of discharge. If she goes to residential unit as I recommended to her they could treat her pain management appropriately while she is receiving therapy. I have explained this to her, and I will begin to taper down her opioids to discontinue over the next 2 days. I do not believe she is will be an imminent danger of withdrawal with the current dosing so she is receiving. Exam/Review of Systems Vital Signs Vitals Vital Signs Date Time Temp Pulse Resp B/P Pulse Ox O2 Delivery O2 Flow Rate FiO2 09/21/16 02:29 98.1 72 18 170/77 95 Intake and Output 09/20/16 09/20/16 09/21/16 15:00 23:00 07:00 Intake Total 100 ml 350 ml Balance 100 ml 350 ml Results Result Diagram: 09/21/16 0508 09/21/16 0508 Results 24 hrs Laboratory Tests Test 09/21/16 05:08 White Blood Count 6.8 Red Blood Count 4.18 L Hemoglobin 10.2 L Hematocrit 33.0 L Mean Corpuscular Volume 78.9 L Mean Corpuscular Hemoglobin 24.4 L Mean Corpuscular Hemoglobin Concent 30.9 L Red Cell Distribution Width 18.2 H Platelet Count 342 Mean Platelet Volume 9.9 Neutrophils % 64.4 Lymphocytes % 18.9 Monocytes % 9.4 Eosinophils % 6.3 Basophils % 0.7 Nucleated Red Blood Cells % 0.0 Neutrophils # 4.4 Lymphocytes # 1.3 Monocytes # 0.6 Eosinophils # 0.4 Basophils # 0.1 Nucleated Red Blood Cells # 0.0 Sodium Level 142 Potassium Level 4.0 Chloride Level 104 Carbon Dioxide Level 25 Anion Gap 17 H Blood Urea Nitrogen 14 Creatinine 0.65 Glucose Level 84 Calcium Level 9.2 Medications Medications Current Medications Ondansetron HCl (Zofran Inj) 4 mg Q6H PRN IV NAUSEA AND/OR VOMITING Last administered on 09/19/16 06:02; Admin Dose 4 MG; Start 09/15/16 at 13:00 Acetaminophen (Tylenol Tab) 650 mg Q6H PRN PO PAIN LEVEL 1-3 OR FEVER Last administered on 09/21/16 06:27; Admin Dose 650 MG; Start 09/15/16 at 13:00 Docusate Sodium (Colace) 100 mg Q12H PRN PO CONSTIPATION Last administered on 20:23; Admin Dose 100 MG; Start 09/15/16 at 13:00 Magnesium Hydroxide (Milk Of Mag) 30 ml DAILY PRN PO CONSTIPATION; Start at 13:00 Sodium Biphosphate/ Sodium Phosphate (Fleet Enema) 133 ml DAILY PRN [place] CONSTIPATION; Start 09/15/16 at 13:00 Lorazepam (Ativan) 0.5 mg Q6H PRN IV ANXIETY Last administered on 09/21/16 01: 58; Admin Dose 0.5 MG; Start 09/15/16 at 13:00 Hydralazine HCl (Apresoline) 10 mg Q6H PRN IV ELEVATED BLOOD PRESSURE Last administered on 09/19/16 03:23; Admin Dose 10 MG; Start 09/15/16 at 13:00 Nitroglycerin (Nitroglycerin (Sl Tab) 0.4 Mg) 1 tab Q5M PRN SL ANGINA; Start at 13:00 Hydroxychloroquine Sulfate (Plaquenil) 200 mg BID PO Last administered on 22:04; Admin Dose 200 MG; Start 09/15/16 at 21:00 Pantoprazole (Protonix Tab) 40 mg DAILY PO Last administered on 09/20/16 08:24 ; Admin Dose 40 MG; Start 09/16/16 at 09:00 Methadone HCl (Methadone) 5 mg BID PO Last administered on 09/20/16 22:04; Admin Dose 5 MG; Start 09/15/16 at 21:00 IV Flush (NS 10 ml) 10 ml PRN PRN IV IV PROTOCOL; Start 09/16/16 at 17:30 Tramadol HCl 50 mg 50 mg Q6H PRN PO PAIN LEVEL 6-10 Last administered on 02:01; Admin Dose 50 MG; Start 09/16/16 at 17:30 Meropenem/Sodium Chloride (Merrem 1 Gm/50 ml (Pmx)) 50 ml @ 100 mls/hr Q12 IVPB Last administered on 09/20/16 21:03; Admin Dose 100 MLS/HR; Start 09/17/16 at 14:00; Stop 09/24/16 at 14:01 DONNA POLLOCK Sep 21, 2016 07:30
[2016-09-21 08:06] VITALS: BP 153/67; RESP 18
[2016-09-21] MEDS: MEROPENEM 1 GM/50ML(PMX) 50 ML IVPB SCH (08:54)
[2016-09-21] MEDS: PANTOPRAZOLE (EC) 40 MG TAB PO SCH (08:55)
[2016-09-21] MEDS: HYDROXYCHLOROQUINE 200 MG TAB PO SCH (08:55)
[2016-09-21] MEDS: METHADONE 5 MG TAB PO SCH (08:55)
--- NOTE | 2016-09-21 11:17 | PN ---
Date/Time of Note Date/Time of Note DATE: 09/21/16 TIME: 11:15 Assessment/Plan VTE Prophylaxis VTE Prophylaxis Intervention: SCD's Lines/Catheters IV Catheter Type (from Nrsg): PICC Line Central line still needed: Yes (IV abx ) Urinary Cath still in place: No Assessment/Plan Assessment/Plan 1. Syncope: Again head CT negative. Likely secondary to polypharmacy. 2. History of rheumatoid arthritis monitor, follow-up pain management doctor recommended, continue Plaquenil, tramadol as needed 3. Lupus: No present issues continue to monitor for now, on Plaquenil 4. Recent AKA: Follow-up PT consult, social work consult as well for possible placement although again patient has been refusing this 5. GI prophylaxis: PPI 6. ESBL E. coli UTI: Multidrug-resistant, continue meropenem, likely will need this antibiotic for another 5 days. Case management is working on setting this up for home use. PICC line in place Dispo: SNF placement today Subjective 24 Hr Interval Summary Free Text/Dictation doing ok, BP stable, on IV abx Exam/Review of Systems Vital Signs Vitals Vital Signs Date Time Temp Pulse Resp B/P Pulse Ox O2 Delivery O2 Flow Rate FiO2 09/21/16 08:06 98.4 56 18 153/67 99 Intake and Output 09/20/16 09/20/16 09/21/16 15:00 23:00 07:00 Intake Total 100 ml 350 ml Balance 100 ml 350 ml Exam General: Lying in bed, somewhat less lethargic HEENT: Pupils equal round reactive to light extraocular muscles are intact Neck: Supple Respiratory: Clear to auscultation bilaterally Cardiovascular: S1-S2 heard, no rubs or gallops GI: Nontender, nondistended, soft, no rebound or guarding Muscular skeletal: Left AKA present. No lower extremity edema right lower extremity Neuro: No signs of any focal deficits Results Result Diagram: 09/21/16 0508 09/21/16 0508 Results 24 hrs Laboratory Tests Test 09/21/16 05:08 White Blood Count 6.8 Red Blood Count 4.18 L Hemoglobin 10.2 L Hematocrit 33.0 L Mean Corpuscular Volume 78.9 L Mean Corpuscular Hemoglobin 24.4 L Mean Corpuscular Hemoglobin Concent 30.9 L Red Cell Distribution Width 18.2 H Platelet Count 342 Mean Platelet Volume 9.9 Neutrophils % 64.4 Lymphocytes % 18.9 Monocytes % 9.4 Eosinophils % 6.3 Basophils % 0.7 Nucleated Red Blood Cells % 0.0 Neutrophils # 4.4 Lymphocytes # 1.3 Monocytes # 0.6 Eosinophils # 0.4 Basophils # 0.1 Nucleated Red Blood Cells # 0.0 Sodium Level 142 Potassium Level 4.0 Chloride Level 104 Carbon Dioxide Level 25 Anion Gap 17 H Blood Urea Nitrogen 14 Creatinine 0.65 Glucose Level 84 Calcium Level 9.2 Medications Medications Current Medications Ondansetron HCl (Zofran Inj) 4 mg Q6H PRN IV NAUSEA AND/OR VOMITING Last administered on 09/19/16 06:02; Admin Dose 4 MG; Start 09/15/16 at 13:00 Acetaminophen (Tylenol Tab) 650 mg Q6H PRN PO PAIN LEVEL 1-3 OR FEVER Last administered on 09/21/16 06:27; Admin Dose 650 MG; Start 09/15/16 at 13:00 Docusate Sodium (Colace) 100 mg Q12H PRN PO CONSTIPATION Last administered on 20:23; Admin Dose 100 MG; Start 09/15/16 at 13:00 Magnesium Hydroxide (Milk Of Mag) 30 ml DAILY PRN PO CONSTIPATION; Start at 13:00 Sodium Biphosphate/ Sodium Phosphate (Fleet Enema) [address] CONSTIPATION; Start 09/15/16 at 13:00 Lorazepam (Ativan) 0.5 mg Q6H PRN IV ANXIETY Last administered on 09/21/16 01: 58; Admin Dose 0.5 MG; Start 09/15/16 at 13:00 Hydralazine HCl (Apresoline) 10 mg Q6H PRN IV ELEVATED BLOOD PRESSURE Last administered on 09/19/16 03:23; Admin Dose 10 MG; Start 09/15/16 at 13:00 Nitroglycerin (Nitroglycerin (Sl Tab) 0.4 Mg) 1 tab Q5M PRN SL ANGINA; Start at 13:00 Hydroxychloroquine Sulfate (Plaquenil) 200 mg BID PO Last administered on 08:55; Admin Dose 200 MG; Start 09/15/16 at 21:00 Pantoprazole (Protonix Tab) 40 mg DAILY PO Last administered on 09/21/16 08:55 ; Admin Dose 40 MG; Start 09/16/16 at 09:00 Methadone HCl (Methadone) 5 mg BID PO Last administered on 09/21/16 08:55; Admin Dose 5 MG; Start 09/15/16 at 21:00 IV Flush (NS 10 ml) 10 ml PRN PRN IV IV PROTOCOL; Start 09/16/16 at 17:30 Tramadol HCl 50 mg 50 mg Q6H PRN PO PAIN LEVEL 6-10 Last administered on 02:01; Admin Dose 50 MG; Start 09/16/16 at 17:30 Meropenem/Sodium Chloride (Merrem 1 Gm/50 ml (Pmx)) 50 ml @ 100 mls/hr Q12 IVPB Last administered on 09/21/16 08:54; Admin Dose 100 MLS/HR; Start 09/17/16 at 14:00; Stop 09/24/16 at 14:01 ALLIE RAMESH MD Sep 21, 2016 11:16
--- NOTE | 2016-09-21 11:20 | PDOCDIS ---
Discharge Instructions CONDITION Patient Condition: Good HOME CARE INSTRUCTIONS: Diet Instructions: Regular ACTIVITY: Activity Restrictions: Slowly Increase Activity Rest between Activity Avoid heavy lifting Avoid Heavy Housework FOLLOW UP/APPOINTMENTS Follow-up Plan follow up with SNF physician 1-2 days. Follow up with her Own orthopedic physician for left AKA care in 1-2 week. Follow up with Her own planning management it specialist in 1 week after discharge ALLIE RAMESH MD Sep 21, 2016 11:20
[2016-09-21 14:29] VITALS: BP 140/67; RESP 20
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
== END 2016-09-21 18:00 | DRG 920 ==
LOC: E/R 09:52 → MS4 12:29 → INTOOBSV 12:29 → E/R 13:56 → OBSVTOIN 09-17 13:31 → PP2 09-20 15:58
PROVIDERS: ADMIT Internal Medicine; ATTEND Internal Medicine
PROC: 02HV33Z Insertion of Infusion Device into Superior Vena Cava, Percutaneous Approach (ICD-10-PCS; principal; 2016-09-16)
DX: T88.7XXA Unspecified adverse effect of drug or medicament, initial encounter (principal); S06.0X1A Concussion with loss of consciousness of 30 minutes or less, initial encounter; M32.9 Systemic lupus erythematosus, unspecified; F11.20 Opioid dependence, uncomplicated; Z89.612 Acquired absence of left leg above knee; N39.0 Urinary tract infection, site not specified; M06.9 Rheumatoid arthritis, unspecified; K21.9 Gastro-esophageal reflux disease without esophagitis; G89.29 Other chronic pain; B96.20 Unspecified Escherichia coli [E. coli] as the cause of diseases classified elsewhere; E86.0 Dehydration; F41.9 Anxiety disorder, unspecified; F17.200 Nicotine dependence, unspecified, uncomplicated; R55 Syncope and collapse; Z98.890 Other specified postprocedural states; Z86.14 Personal history of Methicillin resistant Staphylococcus aureus infection; Z89.619 Acquired absence of unspecified leg above knee
CPT/HCPCS: 36415; 36569; 70450; 71010; 76937; 80048; 80053; 80061; 80306; 80307; 81001; 83036; 83735; 84100; 84439; 85025; 87086; 92610; 93005; 93306; 93880; 96365; 97110; 97163; 97530; 99217; G0378; C1769; J0360; J1956; J2060; J2185; J2270; J2405; J3030; J7030; J7040

== ENCOUNTER 2016-11-04 15:41 | Emergency (ER) | payer MEDICARE, OTHER ==
[~2016-11-04] VITALS: Ht 170.2 cm; Wt 90.9 kg
[2016-11-04 15:56] VITALS: Ht 170.2 cm; Wt 90.9 kg
[2016-11-04] MEDS ORDERED: HYDROCODONE/APAP (10/325) TAB PO ONE (16:00)
[2016-11-04] MEDS ORDERED: ONDANSETRON (ODT) 4 MG TAB ODT STA (16:00)
--- NOTE | 2016-11-04 16:50 | RADRPT ---
PROCEDURE: XR Right Foot. CLINICAL INDICATION: Right foot pain. TECHNIQUE: 3 views. Frontal, lateral, and oblique. COMPARISON: None. FINDINGS: There is no fracture or dislocation. The soft tissues are normal. There is diffuse osteopenia. Articular surfaces are intact. There is no lytic or blastic lesion. There is no radiopaque foreign body. IMPRESSION: 1. Diffuse osteopenia. 2. Otherwise unremarkable images of the right foot. RPTAT: QQ .Luis Angel Elizalde MD, MD Date Time Electronically viewed and signed by .Luis Angel Elizalde MD, MD on 11/04/2016 16:49 .R/
[2016-11-04] MEDS ORDERED: IBUP-1542 PO (17:00)
[2016-11-04 17:54] VITALS: BP 141/70; PULSE 73; RESP 17; TEMP 98.2
--- NOTE | 2016-11-04 18:04 | ERD ---
ER Documentation Chief Complaint Date/Time DATE: 11/04/16 TIME: 18:02 Chief Complaint fall out of bed last night; been on the floor since HPI Patient is a 61-year-old female with lupus and rheumatoid arthritis who presents with right-sided foot pain. The patient was brought in by ambulance. She had a fall off of her bed last night. She has an abrasion on her right foot. 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 She was just recently discharged from [facility] 2 days prior. She takes buprenorphine that is given her by a pain management doctor. Upon review of old medical records the patient has multiple visits to the ER for various complaints. Her primary doctor is Dr. Alves. ROS All systems reviewed and are negative except as per history of present illness. Medications Home Meds Active Scripts Ibuprofen* (Motrin*) 600 Mg Tab, 600 MG PO Q6H Y for PAIN AND OR ELEVATED TEMP, #30 TAB Prov:HERBER TILLEY MD 11/04/16 Reported Medications Temazepam* (Temazepam*) 30 Mg Capsule, 30 MG PO HS Y for INSOMNIA, CAP 07/09/16 Pregabalin* (Lyrica*) 75 Mg Capsule, 75 MG PO TID, CAP 07/09/16 Omeprazole* (Omeprazole*) 40 Mg Capsule.dr, 40 MG PO DAILY, #30 CAP 07/09/16 Sertraline Hcl* (Zoloft*) 100 Mg Tablet, 150 MG PO DAILY, #30 TAB 07/09/16 Hydroxychloroquine Sulfate* (Plaquenil*) 200 Mg Tab, 200 MG PO BID, TAB 07/09/16 Levothyroxine Sodium* (Synthroid*) 112 Mcg Tablet, 112 MCG PO BEFORE BREAKFAST, #30 TAB 07/09/16 Discontinued Reported Medications Carisoprodol* (Soma*) 350 Mg Tablet, 350 MG PO TID Y for MUSCLE SPASMS, TAB 07/09/16 Allergies Allergies: Coded Allergies: Penicillins (Verified Allergy, Severe, 11/04/16) ampicillin (Verified Allergy, Intermediate, 11/04/16) cephalexin (Verified Allergy, Intermediate, 11/04/16) zolpidem (Verified Allergy, Intermediate, 11/04/16) iron (Verified Allergy, Mild, 11/04/16) PMhx/Soc History of Surgery: Yes (HYSTERECTOMY, SPINAL FUSION, LEFT ABOVE THE KNEE AMPUTATION,RIGH KNEE SURG ) Anesthesia Reaction: No Hx Respiratory Disorders: No Hx Cardiac Disorders: No Hx Psychiatric Problems: Yes (Anxiety;Depression;Insomnia) Hx Miscellaneous Medical Probl: Yes (RA,lupus, norco abuse, L AKA 2 weeks ago) Hx Alcohol Use: No Hx Substance Use: No Hx Tobacco Use: No Smoking Status: Never smoker FmHx Family History: No diabetes Physical Exam Vitals Vital Signs Date Time Temp Pulse Resp B/P Pulse Ox O2 Delivery O2 Flow Rate FiO2 11/04/16 17:54 98.2 73 17 141/70 99 Room Air 11/04/16 15:56 97.8 89 13 143/77 100 Physical Exam Const: Moderate distress secondary to pain Head: Atraumatic Eyes: Normal Conjunctiva ENT: Normal External Ears, Nose and Mouth. Neck: Full range of motion..~ No meningismus. Resp: Clear to auscultation bilaterally Cardio: Regular rate and rhythm, no murmurs Abd: Soft, non tender, non distended. Normal bowel sounds Skin: Abrasion to the right foot without laceration Back: No midline or flank tenderness Ext: Previous left leg amputation Neur: Awake and alert Psych: Normal Mood and Affect Results 24 hrs Current Medications Medications (Trade) Dose Ordered Sig/Vincent Route PRN Reason Start Time Stop Time Status Last Admin Dose Admin Acetaminophen/ Hydrocodone Bitart (Sutton (10/325)) 1 tab ONCE ONCE PO 11/04/16 16:00 11/04/16 16:01 DC 11/04/16 16:24 Ondansetron HCl (Zofran Odt) 4 mg ONCE STAT ODT 11/04/16 16:00 11/04/16 16:01 DC 11/04/16 16:24 Procedures/MDM X-ray of the right foot negative for fracture or dislocation per radiology. Is a 61-year-old female presents with contusion to the right foot and abrasion. The patient had an x-ray which shows no fracture or dislocation. The patient was given Sutton and Zofran for systematic relief. The patient will be discharged as there is no fracture or need for surgery at this time. The patient does not want to go back home and would prefer to go to [facility]. We did make a call to [facility] who is accepted the patient back in transfer. The patient can return for any worsening symptoms. She can follow-up with her pain management doctor for further pain treatment. There is no sign of infection at this time. Departure Diagnosis: Primary Impression: Foot pain Laterality: right Qualified Code: M79.671 - Right foot pain Additional Impressions: Abrasion Fall Encounter type: initial encounter Qualified Code: W19.XXXA - Fall, initial encounter Condition: Fair Patient Instructions: Abrasion, Fall, Mechanical, Sprain Foot Additional Instructions: Call your primary care doctor TOMORROW for an appointment during the next 1-2 days.See the doctor sooner or return here if your condition worsens before your appointment time. HERBER TILLEY MD Nov 04, 2016 18:04
== END 2016-11-04 19:17 | disposition home or self-care (01) ==
LOC: E/R 15:41
DX: S90.811A Abrasion, right foot, initial encounter (principal); R40.2142 Coma scale, eyes open, spontaneous, at arrival to emergency department; W06.XXXA Fall from bed, initial encounter; Y92.9 Unspecified place or not applicable
CPT/HCPCS: 73630